=== PATIENT | female | born 1945 | race Caucasian/White ===

== ENCOUNTER → 2016-11-22 | Outpatient (CLI) | payer OTHER ==
[2016-11-22 17:16] LABS: BUN/CREATININE RATIO 24.54 (6-20); CALCIUM 10.7 mg/dL (8.7-10.7); SERUM ALBUMIN 3.9 g/dL (3.5-4.8)
[2016-11-22 17:32] LABS: HEMOGLOBIN A1C > 14.00 % (4.2-6.0)
[2016-11-22 17:44] LABS: HEMOGLOBIN 15.3 g/dL (12.0-16.0); RED BLOOD COUNT 5.16 10^6/uL (4.20-5.40)
[2016-11-22 17:45] LABS: BAND NEUTROPHILS % 0 % (0-10); BASOPHILS % (MANUAL) 1 % (0-1); EOSINOPHILS % (MANUAL) 0 % (0-8); HEMATOCRIT 43.3 % (37.0-47.0); LYMPHOCYTES % (MANUAL) 33 % (10-50); MEAN CORPUSCULAR HEMOGLOBIN 29.7 PG (27-31); MEAN CORPUSCULAR HGB CONC 35.3 g/dL (33-37); MEAN CORPUSCULAR VOLUME 83.9 FL (81-99); MEAN PLATELET VOLUME 10.5 FL (7.4-12.2); MONOCYTES % (MANUAL) 2 % (0-12); NEUTROPHILS % (MANUAL) 64 % (50-80); PLATELET MORPHOLOGY COMMENT NORMAL MORPHOLOGY (NORM); RBC MORPHOLOGY COMMENT NORMAL MORPHOLOGY (NORM); WBC MORPHOLOGY COMMENT NORMAL MORPHOLOGY (NORM)
== END ==
LOC: MOB LAB 16:26
PROVIDERS: ATTEND Family Medicine
DX: E11.9 Type 2 diabetes mellitus without complications (principal); I10 Essential (primary) hypertension; H61.21 Impacted cerumen, right ear; M54.5 Low back pain; M25.561 Pain in right knee; M25.562 Pain in left knee; R35.0 Frequency of micturition
CPT/HCPCS: 36415; 80053; 81002; 83036; 84443; 85007; 99214; G0463

== ENCOUNTER 2017-03-07 16:40 | Inpatient (IN) ==
[2017-03-07] MEDS ORDERED: Sodium Chloride 0.9% 1,000 ML PRIMARY IV ONE (17:25)
[2017-03-07] MEDS ORDERED: ONDANSETRON 4 MG/2 ML VIAL IVP ONE (17:25)
[2017-03-07] MEDS ORDERED: NORMAL SALINE 10 ML SYRINGE FLUSH IVP PRN (17:25)
[2017-03-07] MEDS ORDERED: MORPHINE SULFATE 2 MG/1 ML IVP ONE (17:25)
[2017-03-07 17:39] LABS: BASOPHILS # (AUTO) 0.05 10*3/UL; BASOPHILS % (AUTO) 0.4 % (0-1); EOSINOPHILS # (AUTO) 0.06 10*3/UL; EOSINOPHILS % (AUTO) 0.5 % (0-8); Hematocrit [HCT] 45.9 % (37.0-47.0); Hemoglobin [HGB] 16.5 g/dL (12.0-16.0); LYMPHOCYTES # (AUTO) 2.51 10*3/uL; MEAN CORPUSCULAR HEMOGLOBIN 29.7 PG (27-31); MEAN CORPUSCULAR HGB CONC 35.9 g/dL (33-37); MEAN CORPUSCULAR VOLUME 82.7 FL (81-99); MEAN PLATELET VOLUME 10.8 FL (7.4-12.2); MONOCYTES # (AUTO) 0.73 10*3/UL (0.3-0.8); NEUTROPHILS # (AUTO) 8.81 10*3/UL; NEUTROPHILS % (AUTO) 72.2 % (50-80); PLATELET MORPHOLOGY COMMENT NORMAL MORPHOLOGY (NORM); RBC MORPHOLOGY COMMENT NORMAL MORPHOLOGY (NORM); RED BLOOD COUNT 5.55 10^6/uL (4.20-5.40); WBC MORPHOLOGY COMMENT NORMAL MORPHOLOGY (NORM)
--- NOTE | 2017-03-07 17:42 | EKG ---
[address] [address] Measurements Intervals [place] Rate: 105 P: 74 AR: 177 QRS: 5 QRSD: 136 T: 53 QT: 358 QTc: 419 Interpretive Statements SINUS TACHYCARDIA RIGHT BUNDLE BRANCH BLOCK [120+ ms QRS DURATION, UPRIGHT V1, 40+ ms S IN I/aVL/V4/V5/V6] No previous ECG available for comparison Electronically Signed On 03-09-17 08:41:39 MST by Cm Marin MD [email or web address]
[2017-03-07 18:00] LABS: BLOOD UREA NITROGEN 37 mg/dL (7-22); BUN/CREATININE RATIO 41.11 (6-20); MAGNESIUM 1.9 mg/dL (1.6-2.4); SERUM ALBUMIN 4.1 g/dL (3.5-4.8)
[2017-03-07 18:18] LABS: BILIRUBIN,URINE SMALL (NEG); COLOR,URINE YELLOW (Y); NITRATE,URINE NEGATIVE (NEG); OCCULT BLOOD,URINE SMALL (NEG); PROTEIN,URINE 30 mg/dl (NEG); UROBILINOGEN,URINE 0.2 EU/dL (0.2)
[2017-03-07 18:24] LABS: CLARITY,URINE SLIGHTLY CLOUDY (CLEAR); GLUCOSE, URINE (UA) >=1000 mg/dL (NEG); URINE SAMPLE TYPE CLEAN CATCH URINE
[2017-03-07 18:25] LABS: BACTERIA,URINE RARE; SQUAMOUS EPITHELIAL CELL,UR RARE; YEAST,URINE MANY
[2017-03-07 19:39] LABS: VENOUS PH 7.34 (7.32-7.42)
--- NOTE | 2017-03-07 20:04 | DI ---
PA /LATERAL CHEST X-RAY, 03/07/2017 5:25 PM : Clinical History: Syncope. Previous Exam: None at this facility. There is no acute soft tissue or bony abnormality. Extensive bony proliferative change is present at T11-12 and this is felt to account for the paravertebral densities between T11 and T12. Heart size is normal. Lungs are clear. Mediastinal structures are normal. There are no pulmonary nodules. Reading: Normal chest x-ray.
[2017-03-07] MEDS ORDERED: LIDOCAINE W/ SODIUM BICARB 0.5 ML SYR SUBD PRN (20:36)
[2017-03-07] MEDS ORDERED: Sodium Chloride 0.9% 2,000 ML PRIMARY IV ONE (20:36)
[2017-03-07] MEDS ORDERED: DEXTROSE 31 GM GEL PO PRN (20:36)
[2017-03-07] MEDS ORDERED: CALCIUM CARBONATE 500 MG (TUMS) CHEWABLE TABLET PO PRN (20:36)
[2017-03-07] MEDS ORDERED: Insulin Sliding Scale Protocol SUBCUT PRN (20:36)
[2017-03-07] MEDS ORDERED: DEXTROSE 50%-WATER SYRINGE 50 ML SYRINGE IVP PRN (20:36)
[2017-03-07] MEDS ORDERED: Glucagon Inj Vial 1 MG/ML VIAL IM PRN (20:36)
[2017-03-07] MEDS ORDERED: NICOTINE 21 MG /DAY PATCH TRANSDERM ONE (20:59)
[2017-03-07] MEDS ORDERED: Insulin Glargine SoloStar Inj 100 UNIT/ML INSULN.PEN SUBCUT SCH (21:00)
--- NOTE | 2017-03-07 21:05 | PDOC ---
HPI - History of Present Illness Date and Time of Service: 03/07/20172101 Chief Complaint: Fall and memory problems History of Present Illness: This is a 71-year-old female that lives in the [facility] apartments who presents here today brought in by ambulance after the body care manager found the patient in her apartment not doing very well. The patient reports that she's had some falls, and when I review her record, she has had multiple physician encounters for memory problems dating back to as far as 2011, along with anxiety, depression, diabetes mellitus issues, and tobacco abuse. The patient states that she was up in [place] until about 6 months ago when she moved here to [place]. She's been living independently but honestly does not know if she can live independently. She denies any fever or infectious symptoms and her review of systems was largely negative outside of arthritis and back pain. She states that she stopped taking her medications and ran out of her Cymbalta a couple of weeks ago. She's been very depressed, and has been isolating herself and has not even been smoking socially at her apartment complex. In the emergency room, she was found to have a blood sugar in the 400s , and a chest x-ray was done and it was negative. She had some findings consistent with mild rhabdomyolysis with a slightly elevated CPK in the 170-180 range. There were no exacerbating factors, and the patient was not the best historian, although I did do some cognitive computational evaluation at bedside and she seemed to do fine with that and was oriented to person, place, and situation. She was oriented to time partially. The time course of her recent events is difficult to tell, as she states she stopped her medication 6 months ago, but then also stated that she ran out of her Cymbalta only a couple weeks ago. I may review of her clinic record, she recently saw the family practice residency in [place] and had one visit with Dr. Anderson back in October 2016. I reviewed her pharmacy record and she has not had any refills of medication since November 2016. I do not think she's taking anything. Past Medical History Medical History: 1. Diabetes mellitus type II. 2. Chronic low back pain, etiology could be related to spondylolisthesis or spondyloarthropathy, but no MRI scan has been done to my knowledge. 3. Copious. 4. Depression with anxiety features. 5. Cognitive impairment, possible dementia but not clear. 6. Large abdominal wall hernia. 7. Newly found gait disturbance. 8. Osteoarthritis, status post left knee replacement. Surgical History: 1. Left knee replacement. 2. Abdominal wall hernia repair. 3. Some sort of colectomy and prior history of colostomy with revision. 4. Cleft palate repair. 5. Hysterectomy per patient. 6. Cholecystectomy. 7. Appendectomy per patient. Pertinent Family History: No significant history of heart disease. Past Social History: , smokes, denies alcohol abuse. She has children that she describes as healthy and she states one of her sons lives here in [place] and is her power of trade mark attorney. Tobacco Use: Current Every Day Smoker In the Past 12 Months, Have Used or Abuse Any of the Following Substance: None Alcohol Use: None Medication / Allergies Home Medications: Home Medications Medication Instructions Recorded Confirmed Type NK [NK] 03/07/17 03/07/17 History Allergies/Adverse Reactions: Allergies 3 Allergy/AdvReac Type Severity Reaction Status Date / Time No Known Allergies Allergy Verified 03/07/17 17:04 Review of Systems - Review of Systems All Systems: Reviewed & No Additional Complaints Except as Stated (I did a 12 point review systems, and it was negative except for the history of present illness and that noted below.) - Constitutional Constitutional: REPORTS: General Health Poor, Weakness, Other (Frequent falls) - Cardiovascular Cardiovascular: REPORTS: Negative System Review - Gastrointestinal Gastrointestinal / Abdominal: REPORTS: Negative System Review - Genitourinary Genitourinary: REPORTS: Negative System Review - Musculoskeletal Musculoskeletal: REPORTS: Negative System Review - Neurological Neurologic: REPORTS: Memory Loss, Difficulty Walking, Incoordination - Psychiatric Psychiatric: REPORTS: Depressed Exam - Vitals Vital Signs: Vital Signs (24 hrs) Temp Pulse Resp BP Pulse Ox 03/07/17 16:46 96.5 F L 103 H 16 131/56 95 - General General Appearance: No Acute Distress, Cooperative - Head Head Exam: Normal Inspection, Normocephalic, Atraumatic - Eye Eye Exam: POSITIVE: No Scleral Icterus - ENT ENT Exam: POSITIVE: Mucous Membranes Moist - Neck Neck Exam: Normal Inspection, No Tenderness, No Lymphadenopathy, No Thyromegaly - Respiratory Respiratory Exam: POSITIVE: Clear to Auscultation - Bilaterally, Breathing Non Labored, Normal to Percussion and Palpation - Cardiovascular Cardiovascular Exam: POSITIVE: RRR, No Murmur, No Clicks, No Gallops, No Rubs, No JVD - GI/Abdominal GI/Abdominal Exam: POSITIVE: Normal Bowel Sounds, Non Tender, Non Distended, Soft, Hernia (Lower abdominal wall hernia.) - Rectal Rectal Exam: POSITIVE: Deferred - External Exam: POSITIVE: Deferred Exam: POSITIVE: Deferred - Extremities Extremities Exam: POSITIVE: No Clubbing Present, No Edema Present, No Cyanosis Present - Back Back Exam: POSITIVE: No CVA Tenderness Additional Back Exam Details: May have some abnormalities in kyphosis and lordosis of the thoracic and lumbar spines - Neurological Neurological Exam: POSITIVE: Alert, Oriented x 3, No Facial Droop, Speech Intact / Clear, Moves All Extremities Equally - Psychiatric Psychiatric Exam: POSITIVE: Anxious, Depressed - Integumentary Integumentary Exam: POSITIVE: Normal Color, Warm, Dry, Intact Additional Integumentary Exam Details: Her feet are very dirty, covered in dirt, but I don't notice any sores or lesions. - Central Line Examination Central Line Present on Admission: No Results - Labs CBC and BMP: 03/07/17 16:25 03/07/17 16:25 Additional Lab Results: Laboratory Results 03/07/17 03/07/17 03/07/17 Range/Units 16:25 16:25 16:25 WBC 12.20 H (4.8-10.8) 10^3/uL RBC 5.55 H (4.20-5.40) 10^6/uL Hgb 16.5 H (12.0-16.0) g/dL Hct 45.9 (37.0-47.0) % MCV 82.7 (81-99) FL MCH 29.7 (27-31) PG MCHC 35.9 (33-37) g/dL RDW Std Deviation 38.6 L (39-50) fL RDW Coeff of [place] 12.8 (11.5-14.5) % Plt Count 348 (140-350) 10*3/uL MPV 10.8 (7.4-12.2) FL Immature Gran % (Auto) 0.3 (0-5) % Neut % (Auto) 72.2 (50-80) % Lymph % (Auto) 20.6 (10-50) % [place] % (Auto) 6.0 (5-15) % Eos % (Auto) 0.5 (0-8) % Baso % (Auto) 0.4 (0-1) % Immature Gran # (Auto) 0.04 10*3/UL Neut # (Auto) 8.81 10*3/UL Lymph # (Auto) 2.51 10*3/uL [place] # (Auto) 0.73 (0.3-0.8) 10*3/UL Eos # (Auto) 0.06 10*3/UL Baso # (Auto) 0.05 10*3/UL WBC Morphology Comment Normal morphology (NORM) Plt Morphology Comment Normal morphology (NORM) RBC Morph Comment Normal morphology (NORM) VBG pH (7.32-7.42) VBG pCO2 (45-55) mmHg VBG HCO3 (22-26) mmol/L VBG Base Excess (-2-2) MMOL/L Sodium 131 L (135-145) meq/L Potassium 4.9 (3.8-5.2) meq/L Chloride 95 L (98-112) meq/L Carbon Dioxide 19 L (23-33) meq/L Anion Gap 17 (5-20) BUN 37 H (7-22) mg/dL Creatinine 0.9 (0.50-1.20) mg/dL BUN/Creatinine Ratio 41.11 H (6-20) Glucose 455 H* (78-110) mg/dL Calculated Osmolality 300.0 H (267-292) mOsm/kg Lactic Acid 2.1 (0.70-2.10) MMOL/L Calcium 10.6 (8.7-10.7) mg/dL Magnesium 1.9 (1.6-2.4) mg/dL Total Bilirubin 0.8 (0.3-1.2) mg/dL AST 34 (8-39) IU/L ALT 45 (9-52) IU/L Alkaline Phosphatase 137 H (38-126) IU/L Total Creatine Kinase 174 H (30-136) IU/L CK-MB (CK-2) 5.80 H (0.00-5.00) NG/ML Troponin I 0.013 (< 0.040) ng/mL C-Reactive Protein 1.0 H (0.0-0.9) mg/dL Total Protein 8.0 (6.1-8.0) g/dL Albumin 4.1 (3.5-4.8) g/dL Globulin 3.9 (2.50-4.10) g/dL Albumin/Globulin Ratio 1.00 L (1.3-2.0) mg/g Ur Collection Type Urine Color (Y) Urine Clarity (CLEAR) Urine pH (5.0-8.5) Ur Specific [place] (1.005-1.030) Urine Protein (NEG) mg/dl Urine Glucose (UA) (NEG) mg/dL Urine Ketones (NEG) Urine Occult Blood (NEG) Urine Nitrate (NEG) Urine Bilirubin (NEG) Urine Urobilinogen (0.2) EU/dL Ur Leukocyte Esterase (NEG) Urine RBC (NONE) /hpf Urine WBC (NONE) Ur Squamous Epith Cells (NONE) Ur Renal Epithelial Cell (NONE) Urine Crystals Urine Bacteria (NONE) Urine Casts (NONE) Urine Mucus (NONE) Urine Trichomonas (NONE) Urine Yeast (NONE) Ur Culture Indicated? 03/07/17 03/07/17 Range/Units 17:25 18:24 WBC (4.8-10.8) 10^3/uL RBC (4.20-5.40) 10^6/uL Hgb (12.0-16.0) g/dL Hct (37.0-47.0) % MCV (81-99) FL MCH (27-31) PG MCHC (33-37) g/dL RDW Std Deviation (39-50) fL RDW Coeff of [place] (11.5-14.5) % Plt Count (140-350) 10*3/uL MPV (7.4-12.2) FL Immature Gran % (Auto) (0-5) % Neut % (Auto) (50-80) % Lymph % (Auto) (10-50) % [place] % (Auto) (5-15) % Eos % (Auto) (0-8) % Baso % (Auto) (0-1) % Immature Gran # (Auto) 10*3/UL Neut # (Auto) 10*3/UL Lymph # (Auto) 10*3/uL [place] # (Auto) (0.3-0.8) 10*3/UL Eos # (Auto) 10*3/UL Baso # (Auto) 10*3/UL WBC Morphology Comment (NORM) Plt Morphology Comment (NORM) RBC Morph Comment (NORM) VBG pH 7.34 (7.32-7.42) VBG pCO2 33 L (45-55) mmHg VBG HCO3 18 L (22-26) mmol/L VBG Base Excess -8 L (-2-2) MMOL/L Sodium (135-145) meq/L Potassium (3.8-5.2) meq/L Chloride (98-112) meq/L Carbon Dioxide (23-33) meq/L Anion Gap (5-20) BUN (7-22) mg/dL Creatinine (0.50-1.20) mg/dL BUN/Creatinine Ratio (6-20) Glucose (78-110) mg/dL Calculated Osmolality (267-292) mOsm/kg Lactic Acid (0.70-2.10) MMOL/L Calcium (8.7-10.7) mg/dL Magnesium (1.6-2.4) mg/dL Total Bilirubin (0.3-1.2) mg/dL AST (8-39) IU/L ALT (9-52) IU/L Alkaline Phosphatase (38-126) IU/L Total Creatine Kinase (30-136) IU/L CK-MB (CK-2) (0.00-5.00) NG/ML Troponin I (< 0.040) ng/mL C-Reactive Protein (0.0-0.9) mg/dL Total Protein (6.1-8.0) g/dL Albumin (3.5-4.8) g/dL Globulin (2.50-4.10) g/dL Albumin/Globulin Ratio (1.3-2.0) mg/g Ur Collection Type Clean catch urine Urine Color Yellow (Y) Urine Clarity Slightly cloudy A (CLEAR) Urine pH 5.0 (5.0-8.5) Ur Specific [place] 1.010 (1.005-1.030) Urine Protein 30 A (NEG) mg/dl Urine Glucose (UA) >=1000 (NEG) mg/dL Urine Ketones 40 (NEG) Urine Occult Blood Small H (NEG) Urine Nitrate Negative (NEG) Urine Bilirubin Small (NEG) Urine Urobilinogen 0.2 (0.2) EU/dL Ur Leukocyte Esterase Negative (NEG) Urine RBC 2-4 (NONE) /hpf Urine WBC 1-3 (NONE) Ur Squamous Epith Cells Rare (NONE) Ur Renal Epithelial Cell None (NONE) Urine Crystals None Urine Bacteria Rare (NONE) Urine Casts None (NONE) Urine Mucus None (NONE) Urine Trichomonas None (NONE) Urine Yeast Many H (NONE) Ur Culture Indicated? Culture not set - EKG Data -: EKG Interpreted by Me Rate: Tachycardia EKG Shows Normal: Sinus Rhythm - EKG Data EKG Interpretation: Other (Right bundle branch block pattern present. QRS it up or limits of normal) - Imaging Status: Image Pending (I am ordering a head CT scan with gait abnormality, some confusion, and complaints of memory issues, as well as fall), Image Reviewed by Me (I reviewed the chest x-ray, it appears negative on my view.) Assessment and Plan - Patient Problems (1) Confusion Current Visit: Yes Status: Acute Code(s): R41.0 - Disorientation, unspecified (2) Diabetes mellitus type II, uncontrolled Current Visit: Yes Status: Acute Code(s): E11.65 - Type 2 diabetes mellitus with hyperglycemia Qualifiers: Diabetes mellitus complication status: without complication Diabetes mellitus intermediate card tender insulin use: without intermediate card tender use Qualified Code(s): E11.65 - Type 2 diabetes mellitus with hyperglycemia (3) Hypertension Current Visit: Yes Status: Acute Code(s): I10 - Essential (primary) hypertension Qualifiers: Hypertension type: essential hypertension Qualified Code(s): I10 - Essential (primary) hypertension (4) Chronic low back pain Current Visit: Yes Status: Acute Comment: Denies shooting pains into her legs Code(s): M54.5 - Low back pain; G89.29 - Other chronic pain Qualifiers: Back pain laterality: bilateral Sciatica presence: without sciatica Qualified Code(s): M54.5 - Low back pain; G89.29 - Other chronic pain; G89.29 - Other chronic pain (5) Falls Current Visit: Yes Status: Acute Code(s): W19.XXXA - Unspecified fall, initial encounter Qualifiers: Encounter type: initial encounter Qualified Code(s): W19.XXXA - Unspecified fall, initial encounter (6) Cognitive impairment Current Visit: Yes Status: Acute Code(s): R41.89 - Other symptoms and signs involving cognitive functions and awareness (7) Osteoarthritis Current Visit: Yes Status: Acute Code(s): M19.90 - Unspecified osteoarthritis, unspecified site Qualifiers: Osteoarthritis location: multiple joints Osteoarthritis type: primary Qualified Code(s): M15.0 - Primary generalized (osteo)arthritis (8) Medical non-compliance Current Visit: Yes Status: Acute Code(s): Z91.19 - Patient's noncompliance with other medical treatment and regimen (9) Depression Current Visit: Yes Status: Acute Code(s): F32.9 - Major depressive disorder , single episode, unspecified Qualifiers: Depression Type: other depression Qualified Code(s): F32.89 - Other specified depressive episodes - Assessment / Plan Additional Assessment/Plan Details: Admit the patient. Get a CT scan of the head given the history with falls, memory complaints, and gait disturbances. Start insulin to bring the blood sugars down, bolus IV fluids. Nicotine patch. Patient is very depressed, I think she would benefit from an antidepressant. I will check labs tomorrow. Get MRI scan of the brain tomorrow. I think some of the memory problems and gait disturbances could be vascular infarct dementia related? It's worth checking to make sure. I discussed with the patient CODE STATUS, she states DO NOT RESUSCITATE. I think she is lucid enough to make that decision. PT and OT. Try to contact family to figure out what's going on socially. I'm not sure that this patient really should be living on her own. She may need assisted living.
[2017-03-07] MEDS ORDERED: Influenza 17-18 Vaccine (6mo+) Quad 60mcg/0.5ml PF IM ONE (21:14)
[2017-03-07] MEDS ORDERED: CITALOPRAM 20 MG TABLET PO ONE (21:28)
[2017-03-07] MEDS ORDERED: LABETALOL 20 MG/4 ML (5 MG/1 ML) SYRINGE IVP PRN (21:29)
[2017-03-07] MEDS: Sodium Chloride 0.9% 1,000 ML PRIMARY IV SCH (21:30)
[2017-03-07] MEDS: ONDANSETRON 4 MG/2 ML VIAL IVP PRN (21:40)
[2017-03-07] MEDS: IBUPROFEN 800 MG TABLET PO PRN (21:42)
[2017-03-07] MEDS: HEPARIN 5000 UNIT/1 ML SUBCUT SCH (21:43)
[2017-03-07] MEDS: Insulin Lispro Flexpen 300 UNIT/3 ML INSULN.PEN SUBCUT SCH (21:50)
--- NOTE | 2017-03-07 22:13 | DI ---
EXAM: CT Head Without Intravenous Contrast CLINICAL HISTORY: Fall. Balance problems. TECHNIQUE: Axial computed tomography images of the head/brain without intravenous contrast. COMPARISON: None FINDINGS: Brain: Age indeterminate infarct in the left campbell-cerebellum Nonspecific white matter low attenuation, possible small vessel disease with age indeterminate ischemic changes not excluded.. Small lacunar infarcts. Involutional changes. No midline shift. No acute intracranial hemorrhage. Ventricles: Unremarkable. Bones/joints: Chronic-appearing soft tissue density/osseous fragment in the anterior left maxilla, possibly posttraumatic Soft tissues: See above. Sinuses: Unremarkable as visualized. Mastoid air cells: Unremarkable as visualized. 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 Nonspecific white matter low attenuation. Compare with priors if available, consider MRI if there is concern for acute ischemia. [employer] 03/07/17 22:20 Verify Receipt Verified receipt with BRIDGET Boyer on [address]
--- NOTE | 2017-03-07 23:44 | PDOC ---
General Adult HPI - General Chief Complaint: General Medical Stated Complaint: VAGUE C/O ILLNESS Date Seen by Provider: 03/07/17 Time Seen by Provider: 16:50 Source: POSITIVE: Patient Exam Limitations: POSITIVE: No limitations Nurse's Notes Reviewed & Considered: Yes EMS Report Reviewed & Considered: Unavailable - History of Present Illness Initial Comment: The patient is a 72-year-old female who is brought to the emergency room by ambulance from her residence at the [facility]. Ambulance was apparently called by one of the caretakers at the [place]. The hatchery employee had not seen the patient come out of her apartment all day, which was unusual for her. She went to check on the patient and found the patient very "weak". The patient told the hatchery employee that she had "passed out" twice today. The hatchery employee then called the ambulance, which brought the patient to the emergency room. The paramedics left the emergency room before physician together any collateral information, and no ambulance report is presently available. Patient states that she has felt "bad" for several days. She states she thinks that "my blood sugar is too high ". She has been taking her blood glucose levels at home but does not know what these levels have been. She states she has some "difficulty thinking" and "dizziness ". She also complains of nausea. Patient has a history of diabetes mellitus for which she takes metformin and hypertension for which she takes lisinopril. She also takes Cymbalta. She denies any known fevers or chills. She states that she does not believe she has injured herself during today's falls. No head, chest, or abdominal pain. No vomiting or diarrhea. Have you received a tetanus shot in the past 10 years?: Unknown Body Location Affected: REPORTS: Other (As above) Timing: REPORTS: Gradual Duration: >24 hours Severity: Moderate Quality: REPORTS: Other (Patient denies any pain anywhere) Context: REPORTS: Fall (2), Other (Elevated glucose) Modifying Factors: worse with: Nothing, Analgesics, Antacids, Breathing, Coughing, Defecating, Vomiting, Eating, Exercise, Lying down, Urinating, Palpation, Movement, Rest, Upright Position, Walking, Remaining Still, Other Associated Symptoms: As above Similar Symptoms Previously: No Recent Care Received: REPORTS: Denies Any Prior Injuries Related to Current Complaint?: No - Patient Home Medications Home Medications: Home Medications NK [NK] 03/07/17 - Patient Allergies Allergies/Adverse Reactions: Allergies 3 Allergy/AdvReac Type Severity Reaction Status Date / Time No Known Allergies Allergy Verified 03/07/17 17:04 Past Medical History - heen HEENT History: Denies History Cardiovascular History: Hypertension Respiratory History: Denies History Gastrointestinal History: Denies History Genitourinary History: Denies History Endocrine History: Type 2 Diabetes (oral) Musculoskeletal History: Back Pain Prosthesis or Implant: No Neurological History: Denies History Blood Disorders: Denies History Psychiatric History: Depression Female Reproductive History: Denies History Cancer History: Denies History In Past Year Been Physically Harmed or Verbally Threatened: No History of MDRO: No Tobacco Use: Current Every Day Smoker In the Past 12 Months, Have Used or Abuse Any Substance: None Previous Surgical History: Yes Past Medical History Reviewed: Reviewed - No Changes ROS - Limitations ROS Limitations: Clinical Condition (Patient initially somewhat somnolent and slow to answer questions, although she did answer questions appropriately and was oriented to time, place, and situation.) Constitution: REPORTS: Weakness Cardiovascular: REPORTS: Denies Cardiac Symptoms Respiratory: REPORTS: Denies Resp Symptoms Neurological: REPORTS: Dizziness, Difficulty Walking (Unsteady) Gastrointestinal: REPORTS: Nausea Endocrine: REPORTS: Fatigue, Elevated Glucose Musculoskeletal: REPORTS: Denies MS Symptoms Genitourinary: REPORTS: Denies Symptoms Eyes: REPORTS: Denies Symptoms ENT: REPORTS: Denies Symptoms Skin: REPORTS: Denies Skin Symptoms Lympathic: REPORTS: Denies Lympathic Symptoms Immunologic: POSITIVE: Denies Symptoms Psychiatric: POSITIVE: Denies Psych Symptoms General Adult Exam - General Appearance General Appearance: POSITIVE: Alert, Cooperative, No Acute Distress, No Evidence of Trauma - HEENT HEENT: POSITIVE: Head Inspection Nml, Eyes Inspection Nml, Ears Inspection Nml, Nose Inspection Nml, Oral/Dental Inspect. Nml, Pharynx Inspect. Nml, PERRL, EOMI , Other (Lips appear somewhat dry) - Pupils Pupil Size: 3 mm: Bilateral (PERRLA) - Neck Neck: POSITIVE: Normal Inspection, Thyroid Normal - Respiratory Respiratory: POSITIVE: No Respiratory Distress, Breath Sounds Normal, Chest Non- Tender - Cardiovascular Cardiovascular: POSITIVE: Regular Rate & Rhythm, No Murmur, No Gallop, PMI Normal Peripheral Pulses: Radial (R): 2+, Radial (L): 2+ - Abdomen Abdomen: Soft: (All Quadrants), Normal Bowel Sounds: (All Quadrants), Denies Tenderness: (All Quadrants), No Splenomegaly: (All Quadrants), No Hepatomegaly: (All Quadrants), No Guarding: (All Quadrants), No Rebound: (All Quadrants), No Palpable Pulse: (All Quadrants), No Palpabale Mass: (All Quadrants), No Distention: (All Quadrants), No Rigidity: (All Quadrants) - Back Back: POSITIVE: Normal Inspection - Skin Skin: POSITIVE: Normal Color, Warm, Dry, No Rash - Extremities Extremity: Non-Tender: (All Extremities), Normal ROM: (All Extremities), Normal Inspection: (All Extremities) - Neurological / Psychological Neurological: POSITIVE: Affect Apporpriate, Oriented X3, brand ambassador Normal As Tested, Motor Normal, Sensation Normal General Adult Progress - Results Reviewed by me Xrays/CTs/US Reviewed by me: Yes Discussed with Radiologist: No Radiology Findings: Chest x-ray normal by my interpretation; radiologist interpretation pending. Lab Results Reviewed by Me: Yes (catheter UA shows glucose area; troponin 0.013 ; creatine kinase somewhat el) CBC and BMP: 03/07/17 16:25 03/07/17 16:25 EKG Interpreted/Reviewed By Me:: Yes (right bundle-branch block; sinus tachycardia) EKG Interpretation:: POSITIVE: Abnormal EKG. NEGATIVE: Normal Sinus Rhythm ( Sinus tachycardia of 105), Normal Rate (Sinus tachycardia 105), Normal Intervals (Right bundle-branch block), Normal Sargents (Right bundle-branch block), Normal QRS (Right bundle-branch block), Normal ST/T (Right bundle-branch block) - Patient's Progress Pain Medication Addressed: POSITIVE: Not Applicable School/Work Release Addressed: POSITIVE: Not Applicable Re-Examine Time: 18:20 Re-Examine Comment: Patient hydrated and states she feels some better. She is alert and oriented and mentation seems improved. Hungry and asking for something to eat. Re-Examine Time:: 19:00 Re-Examine Comment: Case discussed with hospitalist; patient admitted for further evaluation and treatment. Status: POSITIVE: Improved, Re-Examined Antibiotics Given: No CVA/Syncope: POSITIVE: EKG - Consult Consult (If Yes, Name of Consulting MD & Time Called): Yes (Dr. Palacios, hospitalist, [id number]) Consulting MD will see pt:: POSITIVE: [facility] Admit Counseled: POSITIVE: Patient, RE: Lab Results, RE: Radiology Results, RE: DX, RE : Need for F/U Patient Care Time - Estimated PCT Patient Care Time (In Minutes): 60 Vital Signs - Recent Vital Signs Vital Signs: Vital Signs (Last 8 hours) Temp Pulse Pulse Resp BP BP Pulse Ox 03/07/17 20:20 96.9 F 100 18 130/56 95 03/07/17 16:46 96.5 F L 103 H 16 131/56 95 - VS Reviewed Vital Signs Reviewed: Yes Discharge Clinical Impression: Dehydration Diabetes mellitus type II, uncontrolled Qualifiers: Diabetes mellitus complication status: without complication Diabetes mellitus termite exterminator helper insulin use: without [place] [facility] use Qualified Code(s): E11.65 - Type 2 diabetes mellitus with hyperglycemia Chronic low back pain Qualifiers: Back pain laterality: bilateral Sciatica presence: without sciatica Qualified Code(s): M54.5 - Low back pain Falls Qualifiers: Encounter type: initial encounter Qualified Code(s): W19.XXXA - Unspecified fall, initial encounter Discharge Disposition: Admit to Inpatient Condition: Stable Date Decision to Admit to Inpatient: 03/07/17 Time Decision to Admit to Inpatient: 18:40
[2017-03-08] MEDS: Sodium Chloride 0.9% 1,000 ML PRIMARY IV SCH ×2 (04:35→14:46)
[2017-03-08] MEDS: HEPARIN 5000 UNIT/1 ML SUBCUT SCH ×3 (05:25→20:11)
[2017-03-08] MEDS: ONDANSETRON 4 MG/2 ML VIAL IVP PRN ×3 (05:26→15:40)
[2017-03-08 06:03] LABS: BASOPHILS # (AUTO) 0.02 10*3/UL; BASOPHILS % (AUTO) 0.3 % (0-1); EOSINOPHILS # (AUTO) 0.11 10*3/UL; EOSINOPHILS % (AUTO) 1.4 % (0-8); Hemoglobin [HGB] 12.7 g/dL (12.0-16.0); LYMPHOCYTES # (AUTO) 1.95 10*3/uL; MEAN CORPUSCULAR HEMOGLOBIN 28.7 PG (27-31); MEAN CORPUSCULAR HGB CONC 34.3 g/dL (33-37); MEAN CORPUSCULAR VOLUME 83.5 FL (81-99); MEAN PLATELET VOLUME 10.2 FL (7.4-12.2); MONOCYTES # (AUTO) 0.63 10*3/UL (0.3-0.8); NEUTROPHILS # (AUTO) 5.11 10*3/UL; NEUTROPHILS % (AUTO) 65.3 % (50-80); RED BLOOD COUNT 4.43 10^6/uL (4.20-5.40)
[2017-03-08 06:24] LABS: AMMONIA 9 UMOL/L (9.0-33.0); BLOOD UREA NITROGEN 33 mg/dL (7-22); BUN/CREATININE RATIO 41.25 (6-20); SERUM ALBUMIN 2.7 g/dL (3.5-4.8)
[2017-03-08 06:25] LABS: PLATELET MORPHOLOGY COMMENT NORMAL MORPHOLOGY (NORM); RBC MORPHOLOGY COMMENT NORMAL MORPHOLOGY (NORM); WBC MORPHOLOGY COMMENT NORMAL MORPHOLOGY (NORM)
[2017-03-08 06:48] LABS: HIV ANTIBODY NEGATIVE (N); HIV-1 P24 ANTIGEN NEGATIVE (N)
[2017-03-08] MEDS: ACETAMINOPHEN 325 MG TABLET PO PRN ×2 (07:21→15:40)
[2017-03-08] MEDS: Insulin Lispro Flexpen 300 UNIT/3 ML INSULN.PEN SUBCUT SCH ×4 (07:23→20:10)
[2017-03-08] MEDS ORDERED: DULOXETINE 30 MG CAPSULE PO SCH (09:00)
[2017-03-08] MEDS ORDERED: DIAZEPAM 10 MG/2 ML (5 MG/1 ML) CARPUJECT IVP ONE (09:07)
[2017-03-08] MEDS: CITALOPRAM 20 MG TABLET PO SCH (09:12)
[2017-03-08] MEDS: NICOTINE 21 MG /DAY PATCH TRANSDERM SCH (09:12)
[2017-03-08] MEDS: IBUPROFEN 800 MG TABLET PO PRN ×2 (09:37→20:09)
[2017-03-08] MEDS ORDERED: Influenza 17-18 Vaccine (6mo+) Quad 60mcg/0.5ml PF IM ONE (11:24)
[2017-03-08] MEDS ORDERED: Insulin Glargine SoloStar Inj 100 UNIT/ML INSULN.PEN SUBCUT SCH (12:45)
--- NOTE | 2017-03-08 12:48 | PDOC(PROG) ---
Date and Time of Service: 03/08/2017, 1245 Interval History: No chest pain and no trouble breathing. Complains of back pain. Has significant gait disturbance, leans towards the left. Head CT scan showed evidence of a probable cerebellar stroke, and MRI of brain is pending today. She complains of nausea. Objective : Data - Labs CBC and BMP: 03/08/17 05:48 03/08/17 05:48 Objective : Exam - General General Appearance: No Acute Distress, Cooperative Additional General Exam Details: Vital Signs (24 hrs) Temp Pulse Pulse Resp BP BP Pulse Ox 03/08/17 11:27 97.1 F 84 16 145/63 95 03/08/17 11:00 93 03/08/17 07:27 97.8 F 95 12 142/46 93 03/08/17 07:00 90 03/08/17 04:31 97.3 F 98 20 163/47 94 03/08/17 04:21 94 03/08/17 03:00 88 03/07/17 21:00 97.4 F 104 H 22 173/75 95 03/07/17 20:20 96.9 F 100 18 130/56 95 03/07/17 16:46 96.5 F L 103 H 16 131/56 95 - Head Head Exam: Normal Inspection - Eye Eye Exam: No Scleral Icterus - ENT ENT Exam: Mucous Membranes Moist - Respiratory Respiratory Exam: Clear to Auscultation - Bilaterally, Breathing Non Labored - Cardiovascular Cardiovascular Exam: RRR, No Murmur, No Clicks, No Gallops, No Rubs, No JVD - GI/Abdominal GI/Abdominal Exam: Normal Bowel Sounds, Non Tender, Non Distended, Soft - Extremities Extremities Exam: No Clubbing Present, No Edema Present, No Cyanosis Present - Neurological Neurological Exam: Alert, Oriented x 3, No Facial Droop, Speech Intact / Clear, Moves All Extremities Equally, Abnormal Gait Additional Neurological Exam Details: Score 23/30 on her cognitive evaluation. - Psychiatric Psychiatric Exam: Anxious, Depressed Assessment and Plan - Patient Problems (1) Cerebellar stroke Current Visit: Yes Status: Acute Code(s): I63.9 - Cerebral infarction, unspecified (2) Confusion Current Visit: Yes Status: Acute Code(s): R41.0 - Disorientation, unspecified (3) Diabetes mellitus type II, uncontrolled Current Visit: Yes Status: Acute Code(s): E11.65 - Type 2 diabetes mellitus with hyperglycemia Qualifiers: Diabetes mellitus complication status: without complication Diabetes mellitus group home insulin use: without terminal operator use Qualified Code(s): E11.65 - Type 2 diabetes mellitus with hyperglycemia (4) Hypertension Current Visit: Yes Status: Acute Code(s): I10 - Essential (primary) hypertension Qualifiers: Hypertension type: essential hypertension Qualified Code(s): I10 - Essential (primary) hypertension (5) Chronic low back pain Current Visit: Yes Status: Acute Code(s): M54.5 - Low back pain; G89.29 - Other chronic pain Qualifiers: Back pain laterality: bilateral Sciatica presence: without sciatica Qualified Code(s): M54.5 - Low back pain; G89.29 - Other chronic pain; G89.29 - Other chronic pain (6) Falls Current Visit: Yes Status: Acute Code(s): W19.XXXA - Unspecified fall, initial encounter Qualifiers: Encounter type: initial encounter Qualified Code(s): W19.XXXA - Unspecified fall, initial encounter (7) Cognitive impairment Current Visit: Yes Status: Acute Code(s): R41.89 - Other symptoms and signs involving cognitive functions and awareness (8) Osteoarthritis Current Visit: Yes Status: Acute Code(s): M19.90 - Unspecified osteoarthritis, unspecified site Qualifiers: Osteoarthritis location: multiple joints Osteoarthritis type: primary Qualified Code(s): M15.0 - Primary generalized (osteo)arthritis (9) Medical non-compliance Current Visit: Yes Status: Acute Code(s): Z91.19 - Patient's noncompliance with other medical treatment and regimen (10) Depression Current Visit: Yes Status: Acute Code(s): F32.9 - Major depressive disorder , single episode, unspecified Qualifiers: Depression Type: other depression Qualified Code(s): F32.89 - Other specified depressive episodes - Assessment / Plan Additional Assessment/Plan Details: Patient probably had a subacute cerebellar stroke sometime within the last week or so. She has significant balance problems. I spoke with radiology regarding the patient's MRI scan and it does. Consistent with this. We'll check a CTA of her head and neck with and without contrast to evaluate further as I do not think she will remain stable positionally for repeat MRI scan with MRA of the head and neck. PT and OT. Aspirin. Resume blood pressure medications. Would probably benefit from rehabilitation, senior care facility, and closer medical management of her medical issues. I spoke with her son about this yesterday, and he agreed. We will get case management involved. We'll try to update son on the fact that we did confirm she had a stroke. She is far outside the TPA window.
[2017-03-08] MEDS: Prochlorperazine Edisylate Inj 10mg/2ml vial IVP PRN ×2 (13:27→17:54)
--- NOTE | 2017-03-08 13:34 | DI ---
MRI BRAIN SCAN WITHOUT IV CONTRAST, 03/08/2017 7:00 AM: Clinical History: Balance problems. Fall. Previous Exam: None at this facility. Sequences: Sagittal T1; Axial ELISEO T2 and FLAIR. Axial diffusion weighted images with ADC mapping were also performed. The 4th, 3rd, and lateral ventricles are of normal size, shape, position, and contour for this patien t's age. There are hyperintensities in the inferior half of the left cerebellar hemisphere with subtl e mass effect. This same area shows hyperintensity on the diffusion sequence and low signal intensity on the ADC map consistent with an ischemic infarct corresponding to occlusion of the left posterior inferior cerebellar artery distribution. There is actually some increased signal intensity on the non contrast T1-weighted scans corresponding to the infarct suggesting partial hemorrhagic transformation . This would imply this is a subacute infarct. There is no involvement of the brainstem. There is an old infarct in the body of the right caudate nucleus and this actually communicates with the body of the right lateral ventricle. A second small 6 mm old infarct is present in the right basal ganglia. T here are multiple punctate periventricular white matter hyperintensities bilaterally that extend into the watershed territory, consistent with mild small vessel ischemic disease. This amount of ischemic disease is appropriate for the patient's age. There is moderately severe cerebral atrophy and mild c erebellar atrophy. This patient has a type I Arnold-Chiari malformation with the right cerebellar hem isphere descending 3 mm below the foramen magnum. The left cerebellar tonsil also distends below the foramen magnum but it is enlarged secondary to the subacute infarct. There are no extracerebral mante ls or shift of the midline structures. The paranasal sinuses are normal. Readin. Findings consistent with a subacute ischemic infarct corresponding to the distribution of the lef t PICA, but with the hyperintensities in the infarct area on the noncontrast T1-weighted sequence, th is infarct is probably subacute. Mild mass effect is present but most pronounced in the left cerebell ar tonsil. This patient has an Arnold-Chiari type I malformation. 2. There are old lacunar infarcts in the body of the right caudate nucleus and the right basal gangl ia. There is also mild small vessel ischemic disease. 3. Moderately severe cerebral atrophy with mild cerebellar atrophy.
[2017-03-08] MEDS ORDERED: ASPIRIN 325 MG TABLET PO ONE (14:14)
--- NOTE | 2017-03-08 16:10 | PT.PROG ---
Progress Note Progress Note: Patient was not seen this afternoon due to testing. Patient will continue POC 11 /10 AM.
--- NOTE | 2017-03-08 17:53 | DI ---
CT ANGIOGRAM OF THE NECK, 03/08/2017 1:20 PM : Clinical History: Left hemispheric cerebellar stroke. Previous Exam: None at this facility. Scans are performed from the sternal notch to of the neck to the base of the skull following IV admin istration of 65 mL of Isovue 300. Proprietary automated bolus tracking software was used to verify th e timing of the injection. 3D MIPS and multiplanar reconstructions are generated from the acquired da ta using the [employer] off line processing program. The base of the neck and thoracic inlet are normal. There are no abnormal cervical lymph nodes. The r ight common carotid artery has a 50% long segment diameter stenosis arising about 2 cm distal from th e origin and extending for approximately 1.5 cm after which the caliber of symptoms a normal diameter . There is a heavy calcification in the right posterior carotid bulb with an estimated 50% diameter s tenosis of the proximal right internal carotid artery. The remainder of the right internal carotid ar arya up to the anterior clinoid process is normal. The left carotid carotid artery is normal from its origin to the bifurcation. There is no significant stenosis in the left carotid bulb or in the left internal carotid artery to the anterior clinoid process. There is a 50% diameter stenosis at the orig in of the right vertebral artery which is the dominant vessel. The remainder of the right vertebral a rtery is normal. The left vertebral artery has a normal origin. Plaque disease is noted from approxim ately the left foramen transversarium at C7 up to C5 without significant stenosis. The left vertebral artery is unremarkable up to the level of C1 at which point there is complete occlusion of this vess el up to the beginning of the basilar artery. The left PICA is not visualized and this would explain the left cerebellar hemispheric infarct. The right PICA is visualized and is grossly normal. READIN. 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 Nonocclusive plaque disease is present in the proximal portion of the left vertebra l artery between C7-C5. The left PICA is not visualized and this accounts for the planned infarct of the inferior aspect of the left cerebellar hemisphere. 2. The right vertebral artery is unremarkable except for a 50% stenosis at the origin. 3. Both common carotid arteries and internal carotid arteries show no hemodynamically significant st enosis. CT ANGIOGRAPHY OF THE [place], 03/08/2017 1:20 PM : Clinical History: See above. Previous Exam: None at this facility. Non contrast head scans are performed to localize the anatomic boundaries of the [place]. IV administration of 95 mL of Isovue 300 is then performed. High resolution axial thin slices through t he [place] are obtained during the arterial phase. 3D MIPS and multiplanar reconstructions a re generated from the acquired data using the [employer] off line processing program. The right vertebral artery is dominant. As previously noted, there is complete occlusion of the left vertebral artery between C1 and the origin of the basilar artery. The left PICA is occluded. There is no basilar tip aneurysm or aneurysm arising from the vertebral-basilar branches. There is no posteri or communicating artery. No anterior communicating artery is identified. The A1 and A2, and the M1 th rough M3 branches bilaterally are normal. READIN. 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 The left PICA is occluded. 2. The remainder of the [place] is normal. There is no posterior communicating artery or vi sualized anterior communicating artery. 3. The pre-and postcontrast scans of the brain show the previously noted left cerebellar hemispheric bland infarct as well as lacunar infarcts of the right basal ganglia and the body of the right cauda te nucleus.
[2017-03-09] MEDS: ACETAMINOPHEN 325 MG TABLET PO PRN ×3 (00:31→21:36)
[2017-03-09] MEDS: ONDANSETRON 4 MG/2 ML VIAL IVP PRN ×3 (00:31→21:52)
[2017-03-09] MEDS: Sodium Chloride 0.9% 1,000 ML PRIMARY IV SCH ×3 (00:35→19:02)
[2017-03-09] MEDS: HEPARIN 5000 UNIT/1 ML SUBCUT SCH ×3 (04:05→20:58)
[2017-03-09] MEDS: Insulin Lispro Flexpen 300 UNIT/3 ML INSULN.PEN SUBCUT SCH ×4 (07:00→20:38)
[2017-03-09 07:16] LABS: BLOOD UREA NITROGEN 26 mg/dL (7-22); BUN/CREATININE RATIO 37.14 (6-20)
--- NOTE | 2017-03-09 08:32 | DI ---
LUMBAR SPINE SERIES, 03/08/2017 7:00 AM: Clinical History: Chronic low back pain. Previous Exam: 10/17/2011. 5 routine views are submitted. The lumbar vertebral bodies are of normal height and size. There is an old compression fracture of T12 with complete obliteration of the T12-L1 disc space and this is unch anged from the prior study of 10/17/2011. The L1-2 and L2-3 disc spaces are normal. L3-4 through L5-S1 disc spaces show severe narrowing. There is a grade 1 spondylolisthesis at L5-S1. Marked sclerosis h as developed at the level of the disc spaces at L3-4 and L4-5 with severe degenerative arthritic olivo ges in all of the apophyseal joints but most pronounced between L3-4 and L5-S1. There is severe degen erative arthritic change of the right sacroiliac joint with mild arthritic change on the left side. Readin. There is severe disc space narrowing at L3-4 through L5-S1 with marked sclerosis of the endplates at L3-4 and L4-5. There is a grade 1 spondylolisthesis at L5-S1. 2. Severe arthritic changes are present in all of the apophyseal joints bilaterally but most pronoun eileen between L3-4 and L5-S1. 3. Old compression fracture of T12.
[2017-03-09] MEDS: NICOTINE 21 MG /DAY PATCH TRANSDERM SCH (08:34)
[2017-03-09] MEDS: ASPIRIN 325 MG TABLET PO SCH (08:36)
[2017-03-09] MEDS: IBUPROFEN 800 MG TABLET PO PRN ×2 (08:36→17:01)
[2017-03-09] MEDS: CITALOPRAM 20 MG TABLET PO SCH (08:37)
--- NOTE | 2017-03-09 11:47 | PTI REPORT ---
Thank you for the referral of Fabi Lemon. She was seen on 03/08/17 for an inpatient evaluation secondary to weakness and decreased balance. SUBJECTIVE: The patient is a 72-year-old female. The patient reports a pain level of 5/10 on the verbal analog scale (0=no pain, 10=worst pain) in her low back that never resolves. She states at worst it gets to a 7/10. The patient states she lives alone in [address] and has had two falls in the last month. She states she was mostly independent with ADLs prior to hospitalization. She states that she did get her meals delivered by the [facility] which is across the way. The patient lives on the first floor. She does have hand rails and two small steps to enter the building. The patient states she ambulates with a single axis cane very short distances. The patient states she has been very dizzy the last couple of days and feels "weird". PAST MEDICAL HISTORY: Past medical history can be found in the patient's medical record. OBJECTIVE FINDINGS: Range of motion: Range of motion of lower extremities are within functional limits. Strength: Manual muscle testing revealed 4/5 bilateral lower extremity strength throughout. Bed mobility: The patient was able to come from supine to sit with min assist. Transfers: The patient was able to perform sit to stand and stand to sit transfers with mod assist. Ambulation: The patient was able to ambulate 20 feet with single axis cane with mod/max assist. The therapist would recommend front wheeled or four point walker for safety. Balance: The patient had poor sitting static and dynamic balance as well as poor static and dynamic standing balance. Eyes open Romberg was at 8 seconds, eyes closed Romberg was at 4 seconds. ASSESSMENT: The patient has subjective and objective findings consistent with generalized weakness and poor balance related to possible other medical complications. The patient demonstrates poor safety awareness and balance and would do well with assistance at home or in a skilled facility. Short-Term Goals: To be met by discharge from inpatient: Patient will demonstrate poor plus static and dynamic sitting balance. Patient will be able to ambulate 40 feet with least restrictive assistive device and min assist. Patient will be able to transfer from sit to stand to least restrictive assistive device with min assist. Long-Term Goals: To be met following discharge from inpatient: Patient will be able to ambulate household distances with least restrictive assistive device and min assist to supervision. Patient will be able to transfer from sit to stand with stand by assist or supervision. TREATMENT PLAN: Patient will be seen B.I.D during the week and one time per day over the weekend as an inpatient to address the above goals and objectives. INITIAL TREATMENT: Treatment today consisted of the inpatient evaluation followed by range of motion, manually resisted activities, and ambulation x20 feet with least restrictive assistive device. At this time the patient was brought to the physical therapy gym and left with OT in no apparent distress. The patient did state she was dizzy and felt weird. [email or web address]
[2017-03-09] MEDS: DOCUSATE 100 MG CAPSULE PO PRN (12:01)
[2017-03-09] MEDS: Prochlorperazine Edisylate Inj 10mg/2ml vial IVP PRN ×2 (12:01→18:49)
--- NOTE | 2017-03-09 14:28 | OTI REPORT ---
Thank you for the referral of Fabi Lemon. She was seen on 03/08/17 for an occupational therapy inpatient evaluation secondary to weakness and decreased balance. SUBJECTIVE: The patient is a 72-year-old female who is being seen today secondary to being found in her apartment having increased difficulties being able to take care of herself. She did come in with a blood sugar of 400. She did report to occupational therapy that typically she dresses herself. She states she is having increased difficulty at home. She states she has not been taking care of herself well and has difficulty initiating this. She knows that she has depression and this is part of it. Also, the patient states she has not taken her medications for the last two months. PAST MEDICAL HISTORY: Past medical history can be found in the patient's medical record. OBJECTIVE FINDINGS: Range of motion: The patient's range of motion of her upper extremities was within normal limits. Strength: Strength in bilateral upper extremities was 3+/5 for shoulder flexion and 3+/5 for abduction, elbow flexion/extension was 3+/5, and wrist flexion/ extension was 3+/5. Coordination: The patient did seem slightly less coordinated on the left side vs. the right. Vision: The patient reports she typically wears glasses. The patient demonstrated good visual tracking today. Cognition: The patient was assessed with the Elías Cognitive Assessment (MoCA ) and she scored 23/30 which puts her in the MILD cognitive impairment range. Her main difficulties were delayed recall and she had slight visuoperceptual concerns on the executive functions. She had good abstraction, was able to repeat sentences, was alert and oriented 5/6 (she was one day off on the day of the week). Transfers: The patient requires max assist with functional transfers for balance. She has very minimal proprioception on where her body is when transferring. She tends to have a very weak left side and kept falling to the left. Activities of daily living: The patient was able to bend to try to take off her sock; she needed min assist. The patient is able to complete upper extremity dressing with min assist and set up. The patient requires max assist for lower extremity dressing. Balance: The patient requires max assist with standing balance to pull pants from knee to waist level. ASSESSMENT: At this time the patient would benefit from skilled occupational therapy to further her cognitive assessment with the Cognitive Performance Test this afternoon. The therapist did discuss with the patient that she may need 24- hour care at some point in time and she was open to possibly going to the [facility] [place] eventually. Problem List: Decreased upper extremity strength Decreased ability to perform functional transfers Decreased safety awareness Short-Term Goals: To be met by discharge from inpatient: Patient will complete the Cognitive Performance Test and scores will be given. Patient will increase upper extremity strength to 4+/5 throughout. Patient will be able to complete a toilet transfer with contact guard assist. Patient will be able to dress lower extremities with min assist and upper extremities with set up independently. Patient will be able to stand x5 minutes while completing hygiene tasks at sink with contact guard assist for balance. Patient will be able to take a shower with min assist while sitting on bench chair. Long-Term Goals: To be met following discharge from inpatient: Patient would like to return home to her apartment. More than likely, the patient will be discharged to home with 24-hour care or to a 24-hour care facility to assist with her abilities to care for herself safely and independently. TREATMENT PLAN: Patient will be seen B.I.D during the week and one time per day over the weekend as an inpatient to address the above goals and objectives. INITIAL TREATMENT: Treatment today consisted of the initial evaluation followed by functional transfer from wheelchair to bed with max assist. She completed the MoCA test with a score of 23/30 and worked on upper extremity active range of motion exercises. HERLINDA
[2017-03-09 14:36] LABS: HEP B CORE IGM ANTIBODY Negative (Negative); HEPATITIS B SURFACE AG Negative (Negative)
--- NOTE | 2017-03-09 15:54 | PT.PROG ---
Progress Note Progress Note: S. Patient stated that she is tired this morning. O. Patient ambulated 4 feet to the chair and performed seated exercises in the form of; long arc quads, heel toe raises, marches, pillow squeezes all x 10 bilaterally. Patient was left in chair with alarm and call light. A. Patient was able to ambulate with less difficulty today compared to yesterday. Patient struggled with controlling motion on her left side however was able to perform exercises with little difficulty. Patient required mod assist x 2 to ambulate. She would continue to benefit from skilled therapy at this time. P. Continue POC.
--- NOTE | 2017-03-09 16:39 | OT.PROG ---
Progress Note Progress Note: S: pt kept stating that she didn't want to be left alone. She also asked a couple times what she was doing down here, meaning therapy. She was in good mood overall. she agreed to participate in small portion of CPT. she stated she has been doing well with her meds at home and only has 3 of them that she takes once a day. O: pt was seen in her room and brought down by PT/OT. She was transferred entire way in w/c. She was set up on heat while going over directions for CPT. She completed only the med management portion of CPT. She scored 6/6 with self correction on only 1 med. She was turned over to PT at this point. A: pt became anxious at the end as she appeared to be uncomfortable with the amount of people in therapy. She did participate well in small portion of CPT. P: continue per POC.
--- NOTE | 2017-03-09 16:56 | PT.PROG ---
Progress Note Progress Note: S: The pt. continued to complain of feeling 'weird.' However, she feels much better than yesterday. O: Pt. AMB 15ft with SBA where she then entered her wheelchair and was taken to rehab center for therapy. She completed head on her back for 20' mins. Pt. was then taken back to her room where she completed seated LE therapeutic exercises of marches, hip isometrics, LAQs, and ankle pumps. A: Pt. was much more alert today. Her balanced improved immensely since last treatment. X She was no longer leaning to the left and had much more control of her own body weight. She got nervous in the PT clinic and wanted to complete the rest of therapy back in her room. Pt. was able to tolerate exercises well. P: Continue POC. Cory London, SPT Chilo Joyce, PT
[2017-03-09] MEDS ORDERED: Insulin Glargine SoloStar Inj 100 UNIT/ML INSULN.PEN SUBCUT SCH (18:18)
--- NOTE | 2017-03-09 18:26 | PDOC(PROG) ---
Date and Time of Service: 03/09/2017, 181 Interval History: No chest pain, SOB, or vomiting. Has had bad nausea. Still having balance issues. Objective : Data - Labs CBC and BMP: 03/08/17 05:48 03/09/17 05:44 Additional Lab Results: Laboratory Results 03/07/17 03/07/17 03/07/17 Range/Units 16:25 16:25 16:25 WBC 12.20 H (4.8-10.8) 10^3/uL RBC 5.55 H (4.20-5.40) 10^6/uL Hgb 16.5 H (12.0-16.0) g/dL Hct 45.9 (37.0-47.0) % MCV 82.7 (81-99) FL MCH 29.7 (27-31) PG MCHC 35.9 (33-37) g/dL RDW Std Deviation 38.6 L (39-50) fL RDW Coeff of Dameon 12.8 (11.5-14.5) % Plt Count 348 (140-350) 10*3/uL MPV 10.8 (7.4-12.2) FL Immature Gran % (Auto) 0.3 (0-5) % Neut % (Auto) 72.2 (50-80) % Lymph % (Auto) 20.6 (10-50) % [place] % (Auto) 6.0 (5-15) % Eos % (Auto) 0.5 (0-8) % Baso % (Auto) 0.4 (0-1) % Immature Gran # (Auto) 0.04 10*3/UL Neut # (Auto) 8.81 10*3/UL Lymph # (Auto) 2.51 10*3/uL [place] # (Auto) 0.73 (0.3-0.8) 10*3/UL Eos # (Auto) 0.06 10*3/UL Baso # (Auto) 0.05 10*3/UL WBC Morphology Comment Normal morphology (NORM) Plt Morphology Comment Normal morphology (NORM) RBC Morph Comment Normal morphology (NORM) ESR (0-20) MM/HR VBG pH (7.32-7.42) VBG pCO2 (45-55) mmHg VBG HCO3 (22-26) mmol/L VBG Base Excess (-2-2) MMOL/L Sodium 131 L (135-145) meq/L Potassium 4.9 (3.8-5.2) meq/L Chloride 95 L (98-112) meq/L Carbon Dioxide 19 L (23-33) meq/L Anion Gap 17 (5-20) BUN 37 H (7-22) mg/dL Creatinine 0.9 (0.50-1.20) mg/dL BUN/Creatinine Ratio 41.11 H (6-20) Glucose 455 H* (78-110) mg/dL Calculated Osmolality 300.0 H (267-292) mOsm/kg Lactic Acid 2.1 (0.70-2.10) MMOL/L Calcium 10.6 (8.7-10.7) mg/dL Magnesium 1.9 (1.6-2.4) mg/dL Total Bilirubin 0.8 (0.3-1.2) mg/dL AST 34 (8-39) IU/L ALT 45 (9-52) IU/L Alkaline Phosphatase 137 H (38-126) IU/L Ammonia (9.0-33.0) UMOL/L Total Creatine Kinase 174 H (30-136) IU/L CK-MB (CK-2) 5.80 H (0.00-5.00) NG/ML Troponin I 0.013 (< 0.040) ng/mL C-Reactive Protein 1.0 H (0.0-0.9) mg/dL Total Protein 8.0 (6.1-8.0) g/dL Albumin 4.1 (3.5-4.8) g/dL Globulin 3.9 (2.50-4.10) g/dL Albumin/Globulin Ratio 1.00 L (1.3-2.0) mg/g Vitamin B12 (239-931) pg/mL Vitamin D 25-Hydroxy (30-100) NG/ML Serum Folate (2.76-20.0) NG/ML Ur Collection Type Urine Color (Y) Urine Clarity (CLEAR) Urine pH (5.0-8.5) Ur Specific [place] (1.005-1.030) Urine Protein (NEG) mg/dl Urine Glucose (UA) (NEG) mg/dL Urine Ketones (NEG) Urine Occult Blood (NEG) Urine Nitrate (NEG) Urine Bilirubin (NEG) Urine Urobilinogen (0.2) EU/dL Ur Leukocyte Esterase (NEG) Urine RBC (NONE) /hpf Urine WBC (NONE) Ur Squamous Epith Cells (NONE) Ur Renal Epithelial Cell (NONE) Urine Crystals Urine Bacteria (NONE) Urine Casts (NONE) Urine Mucus (NONE) Urine Trichomonas (NONE) Urine Yeast (NONE) Ur Culture Indicated? HIV 1&2 Antibody Rapid (N) HIV P24 Antigen (N) 03/07/17 03/07/17 03/07/17 Range/Units 16:25 16:25 16:25 WBC (4.8-10.8) 10^3/uL RBC (4.20-5.40) 10^6/uL Hgb (12.0-16.0) g/dL Hct (37.0-47.0) % MCV (81-99) FL MCH (27-31) PG MCHC (33-37) g/dL RDW Std Deviation (39-50) fL RDW Coeff of Dameon (11.5-14.5) % Plt Count (140-350) 10*3/uL MPV (7.4-12.2) FL Immature Gran % (Auto) (0-5) % Neut % (Auto) (50-80) % Lymph % (Auto) (10-50) % [place] % (Auto) (5-15) % Eos % (Auto) (0-8) % Baso % (Auto) (0-1) % Immature Gran # (Auto) 10*3/UL Neut # (Auto) 10*3/UL Lymph # (Auto) 10*3/uL [place] # (Auto) (0.3-0.8) 10*3/UL Eos # (Auto) 10*3/UL Baso # (Auto) 10*3/UL WBC Morphology Comment (NORM) Plt Morphology Comment (NORM) RBC Morph Comment (NORM) ESR 13 (0-20) MM/HR VBG pH (7.32-7.42) VBG pCO2 (45-55) mmHg VBG HCO3 (22-26) mmol/L VBG Base Excess (-2-2) MMOL/L Sodium (135-145) meq/L Potassium (3.8-5.2) meq/L Chloride (98-112) meq/L Carbon Dioxide (23-33) meq/L Anion Gap (5-20) BUN (7-22) mg/dL Creatinine (0.50-1.20) mg/dL BUN/Creatinine Ratio (6-20) Glucose (78-110) mg/dL Calculated Osmolality (267-292) mOsm/kg Lactic Acid (0.70-2.10) MMOL/L Calcium (8.7-10.7) mg/dL Magnesium (1.6-2.4) mg/dL Total Bilirubin (0.3-1.2) mg/dL AST (8-39) IU/L ALT (9-52) IU/L Alkaline Phosphatase (38-126) IU/L Ammonia (9.0-33.0) UMOL/L Total Creatine Kinase (30-136) IU/L CK-MB (CK-2) (0.00-5.00) NG/ML Troponin I (< 0.040) ng/mL C-Reactive Protein (0.0-0.9) mg/dL Total Protein (6.1-8.0) g/dL Albumin (3.5-4.8) g/dL Globulin (2.50-4.10) g/dL Albumin/Globulin Ratio (1.3-2.0) mg/g Vitamin B12 927 (239-931) pg/mL Vitamin D 25-Hydroxy 25.5 L (30-100) NG/ML Serum Folate > 20.0 H (2.76-20.0) NG/ML Ur Collection Type Urine Color (Y) Urine Clarity (CLEAR) Urine pH (5.0-8.5) Ur Specific [place] (1.005-1.030) Urine Protein (NEG) mg/dl Urine Glucose (UA) (NEG) mg/dL Urine Ketones (NEG) Urine Occult Blood (NEG) Urine Nitrate (NEG) Urine Bilirubin (NEG) Urine Urobilinogen (0.2) EU/dL Ur Leukocyte Esterase (NEG) Urine RBC (NONE) /hpf Urine WBC (NONE) Ur Squamous Epith Cells (NONE) Ur Renal Epithelial Cell (NONE) Urine Crystals Urine Bacteria (NONE) Urine Casts (NONE) Urine Mucus (NONE) Urine Trichomonas (NONE) Urine Yeast (NONE) Ur Culture Indicated? HIV 1&2 Antibody Rapid (N) HIV P24 Antigen (N) 03/07/17 03/07/17 03/08/17 Range/Units 17:25 18:24 05:48 WBC 7.83 (4.8-10.8) 10^3/uL RBC 4.43 (4.20-5.40) 10^6/uL Hgb 12.7 (12.0-16.0) g/dL Hct 37.0 (37.0-47.0) % MCV 83.5 (81-99) FL MCH 28.7 (27-31) PG MCHC 34.3 (33-37) g/dL RDW Std Deviation 37.8 L (39-50) fL RDW Coeff of Dameon 12.6 (11.5-14.5) % Plt Count 284 (140-350) 10*3/uL MPV 10.2 (7.4-12.2) FL Immature Gran % (Auto) 0.1 (0-5) % Neut % (Auto) 65.3 (50-80) % Lymph % (Auto) 24.9 (10-50) % [place] % (Auto) 8.0 (5-15) % Eos % (Auto) 1.4 (0-8) % Baso % (Auto) 0.3 (0-1) % Immature Gran # (Auto) 0.01 10*3/UL Neut # (Auto) 5.11 10*3/UL Lymph # (Auto) 1.95 10*3/uL [place] # (Auto) 0.63 (0.3-0.8) 10*3/UL Eos # (Auto) 0.11 10*3/UL Baso # (Auto) 0.02 10*3/UL WBC Morphology Comment Normal morphology (NORM) Plt Morphology Comment Normal morphology (NORM) RBC Morph Comment Normal morphology (NORM) ESR (0-20) MM/HR VBG pH 7.34 (7.32-7.42) VBG pCO2 33 L (45-55) mmHg VBG HCO3 18 L (22-26) mmol/L VBG Base Excess -8 L (-2-2) MMOL/L Sodium (135-145) meq/L Potassium (3.8-5.2) meq/L Chloride (98-112) meq/L Carbon Dioxide (23-33) meq/L Anion Gap (5-20) BUN (7-22) mg/dL Creatinine (0.50-1.20) mg/dL BUN/Creatinine Ratio (6-20) Glucose (78-110) mg/dL Calculated Osmolality (267-292) mOsm/kg Lactic Acid (0.70-2.10) MMOL/L Calcium (8.7-10.7) mg/dL Magnesium (1.6-2.4) mg/dL Total Bilirubin (0.3-1.2) mg/dL AST (8-39) IU/L ALT (9-52) IU/L Alkaline Phosphatase (38-126) IU/L Ammonia (9.0-33.0) UMOL/L Total Creatine Kinase (30-136) IU/L CK-MB (CK-2) (0.00-5.00) NG/ML Troponin I (< 0.040) ng/mL C-Reactive Protein (0.0-0.9) mg/dL Total Protein (6.1-8.0) g/dL Albumin (3.5-4.8) g/dL Globulin (2.50-4.10) g/dL Albumin/Globulin Ratio (1.3-2.0) mg/g Vitamin B12 (239-931) pg/mL Vitamin D 25-Hydroxy (30-100) NG/ML Serum Folate (2.76-20.0) NG/ML Ur Collection Type Clean catch urine Urine Color Yellow (Y) Urine Clarity Slightly cloudy A (CLEAR) Urine pH 5.0 (5.0-8.5) Ur Specific [place] 1.010 (1.005-1.030) Urine Protein 30 A (NEG) mg/dl Urine Glucose (UA) >=1000 (NEG) mg/dL Urine Ketones 40 (NEG) Urine Occult Blood Small H (NEG) Urine Nitrate Negative (NEG) Urine Bilirubin Small (NEG) Urine Urobilinogen 0.2 (0.2) EU/dL Ur Leukocyte Esterase Negative (NEG) Urine RBC 2-4 (NONE) /hpf Urine WBC 1-3 (NONE) Ur Squamous Epith Cells Rare (NONE) Ur Renal Epithelial Cell None (NONE) Urine Crystals None Urine Bacteria Rare (NONE) Urine Casts None (NONE) Urine Mucus None (NONE) Urine Trichomonas None (NONE) Urine Yeast Many H (NONE) Ur Culture Indicated? Culture not set HIV 1&2 Antibody Rapid (N) HIV P24 Antigen (N) 03/08/17 03/08/17 03/09/17 Range/Units 05:48 05:48 05:44 WBC (4.8-10.8) 10^3/uL RBC (4.20-5.40) 10^6/uL Hgb (12.0-16.0) g/dL Hct (37.0-47.0) % MCV (81-99) FL MCH (27-31) PG MCHC (33-37) g/dL RDW Std Deviation (39-50) fL RDW Coeff of Dameon (11.5-14.5) % Plt Count (140-350) 10*3/uL MPV (7.4-12.2) FL Immature Gran % (Auto) (0-5) % Neut % (Auto) (50-80) % Lymph % (Auto) (10-50) % [place] % (Auto) (5-15) % Eos % (Auto) (0-8) % Baso % (Auto) (0-1) % Immature Gran # (Auto) 10*3/UL Neut # (Auto) 10*3/UL Lymph # (Auto) 10*3/uL [place] # (Auto) (0.3-0.8) 10*3/UL Eos # (Auto) 10*3/UL Baso # (Auto) 10*3/UL WBC Morphology Comment (NORM) Plt Morphology Comment (NORM) RBC Morph Comment (NORM) ESR (0-20) MM/HR VBG pH (7.32-7.42) VBG pCO2 (45-55) mmHg VBG HCO3 (22-26) mmol/L VBG Base Excess (-2-2) MMOL/L Sodium 132 L 137 (135-145) meq/L Potassium 4.4 4.4 (3.8-5.2) meq/L Chloride 103 113 H (98-112) meq/L Carbon Dioxide 18 L 15 L (23-33) meq/L Anion Gap 11 9 (5-20) BUN 33 H 26 H (7-22) mg/dL Creatinine 0.8 0.7 (0.50-1.20) mg/dL BUN/Creatinine Ratio 41.25 H 37.14 H (6-20) Glucose 392 H 218 H (78-110) mg/dL Calculated Osmolality 296.0 H 295.0 H (267-292) mOsm/kg Lactic Acid (0.70-2.10) MMOL/L Calcium 8.8 8.6 L (8.7-10.7) mg/dL Magnesium (1.6-2.4) mg/dL Total Bilirubin 0.4 (0.3-1.2) mg/dL AST 26 (8-39) IU/L ALT 35 (9-52) IU/L Alkaline Phosphatase 124 (38-126) IU/L Ammonia 9 (9.0-33.0) UMOL/L Total Creatine Kinase 141 H (30-136) IU/L CK-MB (CK-2) (0.00-5.00) NG/ML Troponin I (< 0.040) ng/mL C-Reactive Protein (0.0-0.9) mg/dL Total Protein 5.7 L (6.1-8.0) g/dL Albumin 2.7 L (3.5-4.8) g/dL Globulin 3.0 (2.50-4.10) g/dL Albumin/Globulin Ratio 0.90 L (1.3-2.0) mg/g Vitamin B12 (239-931) pg/mL Vitamin D 25-Hydroxy (30-100) NG/ML Serum Folate (2.76-20.0) NG/ML Ur Collection Type Urine Color (Y) Urine Clarity (CLEAR) Urine pH (5.0-8.5) Ur Specific [place] (1.005-1.030) Urine Protein (NEG) mg/dl Urine Glucose (UA) (NEG) mg/dL Urine Ketones (NEG) Urine Occult Blood (NEG) Urine Nitrate (NEG) Urine Bilirubin (NEG) Urine Urobilinogen (0.2) EU/dL Ur Leukocyte Esterase (NEG) Urine RBC (NONE) /hpf Urine WBC (NONE) Ur Squamous Epith Cells (NONE) Ur Renal Epithelial Cell (NONE) Urine Crystals Urine Bacteria (NONE) Urine Casts (NONE) Urine Mucus (NONE) Urine Trichomonas (NONE) Urine Yeast (NONE) Ur Culture Indicated? HIV 1&2 Antibody Rapid Negative (N) HIV P24 Antigen Negative (N) - Imaging CT Scan Status: Report Reviewed by Me (Patient with complete vertebral artery occlusion. Cerebellar stroke on left side.) Objective : Exam - General General Appearance: No Acute Distress, Cooperative Additional General Exam Details: Vital Signs (24 hrs) Temp Pulse Pulse Resp BP BP Pulse Ox 03/09/17 15:58 97.4 F 97 22 173/67 94 03/09/17 15:00 89 03/09/17 13:00 97.0 F 88 20 167/57 95 03/09/17 11:00 102 H 03/09/17 07:00 96 03/09/17 06:38 97.8 F 81 18 164/62 94 03/09/17 04:13 97.6 F 77 20 141/49 93 03/09/17 03:00 79 03/09/17 00:34 97.8 F 97 20 154/51 92 03/09/17 00:28 98 03/08/17 20:04 97.6 F 103 H 18 130/54 94 03/08/17 19:00 98 - Eye Eye Exam: No Scleral Icterus - Respiratory Respiratory Exam: Clear to Auscultation - Bilaterally, Breathing Non Labored - Cardiovascular Cardiovascular Exam: RRR, No Murmur, No Clicks, No Gallops, No Rubs, No JVD - GI/Abdominal GI/Abdominal Exam: Normal Bowel Sounds, Non Tender, Non Distended, Soft - Extremities Extremities Exam: No Clubbing Present, No Edema Present, No Cyanosis Present - Neurological Neurological Exam: Alert, Oriented x 3, No Facial Droop, Speech Intact / Clear - Psychiatric Psychiatric Exam: Normal Affect, Normal Mood Additional Psychiatric Exam Details: smiled today Assessment and Plan - Patient Problems (1) Cerebellar stroke Current Visit: Yes Status: Acute Code(s): I63.9 - Cerebral infarction, unspecified (2) Confusion Current Visit: Yes Status: Acute Code(s): R41.0 - Disorientation, unspecified (3) Diabetes mellitus type II, uncontrolled Current Visit: Yes Status: Acute Code(s): E11.65 - Type 2 diabetes mellitus with hyperglycemia Qualifiers: Diabetes mellitus complication status: without complication Diabetes mellitus intermediate insulin use: without intermediate use Qualified Code(s): E11.65 - Type 2 diabetes mellitus with hyperglycemia (4) Hypertension Current Visit: Yes Status: Acute Code(s): I10 - Essential (primary) hypertension Qualifiers: Hypertension type: essential hypertension Qualified Code(s): I10 - Essential (primary) hypertension (5) Chronic low back pain Current Visit: Yes Status: Acute Code(s): M54.5 - Low back pain; G89.29 - Other chronic pain Qualifiers: Back pain laterality: bilateral Sciatica presence: without sciatica Qualified Code(s): M54.5 - Low back pain; G89.29 - Other chronic pain; G89.29 - Other chronic pain (6) Falls Current Visit: Yes Status: Acute Code(s): W19.XXXA - Unspecified fall, initial encounter Qualifiers: Encounter type: initial encounter Qualified Code(s): W19.XXXA - Unspecified fall, initial encounter (7) Cognitive impairment Current Visit: Yes Status: Acute Code(s): R41.89 - Other symptoms and signs involving cognitive functions and awareness (8) Osteoarthritis Current Visit: Yes Status: Acute Code(s): M19.90 - Unspecified osteoarthritis, unspecified site Qualifiers: Osteoarthritis location: multiple joints Osteoarthritis type: primary Qualified Code(s): M15.0 - Primary generalized (osteo)arthritis (9) Medical non-compliance Current Visit: Yes Status: Acute Code(s): Z91.19 - Patient's noncompliance with other medical treatment and regimen (10) Depression Current Visit: Yes Status: Acute Code(s): F32.9 - Major depressive disorder , single episode, unspecified Qualifiers: Depression Type: other depression Qualified Code(s): F32.89 - Other specified depressive episodes (11) Vertebral artery stenosis Current Visit: Yes Status: Acute Code(s): I65.09 - Occlusion and stenosis of unspecified vertebral artery Qualifiers: Laterality: left Qualified Code(s): I65.02 - Occlusion and stenosis of left vertebral artery - Assessment / Plan Additional Assessment/Plan Details: I discussed with neurologythey told me the complete vertebral artery occlusion is not a lesion that can be stented start lisinopril (okay to start resuming blood pressure management) antiplatelet therapy continue cardiac monitoring, but no evidence of atrial fibrillation to this point start statin continue PT and OTswing bed and watch. may need eventual fpc? increase lantus for DMII smoking cessation continue celexa for depression check ECHO on Sunday son aware of disposition plan and also of cerebellar stroke. He agrees with trying swing bed first and to SNF if necessary
[2017-03-09] MEDS: NORMAL SALINE 10 ML SYRINGE FLUSH IVP PRN ×2 (18:50→21:52)
[2017-03-09] MEDS: Simvastatin Tab 40 MG TAB PO SCH (20:58)
[2017-03-10] MEDS: IBUPROFEN 800 MG TABLET PO PRN ×2 (03:40→12:46)
[2017-03-10] MEDS: HEPARIN 5000 UNIT/1 ML SUBCUT SCH ×3 (05:41→21:29)
[2017-03-10 06:48] LABS: BLOOD UREA NITROGEN 18 mg/dL (7-22); BUN/CREATININE RATIO 25.71 (6-20)
[2017-03-10] MEDS: Insulin Lispro Flexpen 300 UNIT/3 ML INSULN.PEN SUBCUT SCH ×4 (06:51→20:53)
[2017-03-10] MEDS: ACETAMINOPHEN 325 MG TABLET PO PRN ×2 (08:04→20:20)
[2017-03-10] MEDS: LISINOPRIL 20 MG TABLET PO SCH (08:04)
[2017-03-10] MEDS: DOCUSATE 100 MG CAPSULE PO PRN (08:04)
[2017-03-10] MEDS: ASPIRIN 325 MG TABLET PO SCH (08:04)
[2017-03-10] MEDS: NICOTINE 21 MG /DAY PATCH TRANSDERM SCH (08:05)
[2017-03-10] MEDS: CITALOPRAM 20 MG TABLET PO SCH (08:05)
[2017-03-10] MEDS: Prochlorperazine Edisylate Inj 10mg/2ml vial IVP PRN (08:05)
--- NOTE | 2017-03-10 11:26 | PT.PROG ---
Progress Note Progress Note: S: pt reports she is tired today. doesn't want to go downstairs today complaints of back pain. O: nsg okay'd prior to PT. pt instructed in ambulation with walker with mod assist x 2 she tends to lean to left and is unable to self correct for 50 feet. pt instructed in sit to stands w min assist x 2 with walker x 6, then 4 reps after rest break. pt instructed in kegels for back pain x 10, glut setx 10 reps , seated marches, seated pillow squeeze, seated resisted hip abd x 10 reps. standing weight shifting, standing heel/toe raises, standing marches all x 10 reps each. pt instructed in seated resisted hamstring curls isometric. pt required mod assist x 2 with walker for transfer back to bed. MHP x20 mins in supine in bed and nsg was left w instructions on MHP. pt left with call light within reach and proper alarms activated. A: pt tolerated therapy fair, fatigues easily and demo L lateral sway with all activities and unable to self correct. pt continues to benefit from skilled therapy. P: cont per POC.
[2017-03-10] MEDS ORDERED: CHOLECALCIFEROL 1000 IU TABLET PO ONE (12:15)
[2017-03-10] MEDS ORDERED: SCOPOLAMINE HYDROBROMIDE 1.5 MG - 1 EACH PATCH TRANSDERM ONE (15:34)
[2017-03-10] MEDS ORDERED: MAGNESIUM 400 MG/5 ML - 30 ML (MILK OF MAGNESIA) PO ONE (15:35)
[2017-03-10] MEDS ORDERED: Insulin Glargine SoloStar Inj 100 UNIT/ML INSULN.PEN SUBCUT SCH (15:35)
[2017-03-10] MEDS ORDERED: MAGNESIUM 400 MG/5 ML - 30 ML (MILK OF MAGNESIA) PO PRN (15:35)
--- NOTE | 2017-03-10 15:48 | PDOC(PROG) ---
Date and Time of Service: 03/10/2017, 1543 Interval History: Still complains of bad nausea. Has not had a bowel movement in a couple of days. No chest pain, shortness of breath, and still leans significantly to the left with ambulation and therapy. Objective : Data - Labs CBC and BMP: 03/08/17 05:48 03/10/17 05:50 Additional Lab Results: Laboratory Results 03/07/17 03/07/17 03/07/17 Range/Units 16:25 16:25 16:25 WBC 12.20 H (4.8-10.8) 10^3/uL RBC 5.55 H (4.20-5.40) 10^6/uL Hgb 16.5 H (12.0-16.0) g/dL Hct 45.9 (37.0-47.0) % MCV 82.7 (81-99) FL MCH 29.7 (27-31) PG MCHC 35.9 (33-37) g/dL RDW Std Deviation 38.6 L (39-50) fL RDW Coeff of [place] 12.8 (11.5-14.5) % Plt Count 348 (140-350) 10*3/uL MPV 10.8 (7.4-12.2) FL Immature Gran % (Auto) 0.3 (0-5) % Neut % (Auto) 72.2 (50-80) % Lymph % (Auto) 20.6 (10-50) % [place] % (Auto) 6.0 (5-15) % Eos % (Auto) 0.5 (0-8) % Baso % (Auto) 0.4 (0-1) % Immature Gran # (Auto) 0.04 10*3/UL Neut # (Auto) 8.81 10*3/UL Lymph # (Auto) 2.51 10*3/uL [place] # (Auto) 0.73 (0.3-0.8) 10*3/UL Eos # (Auto) 0.06 10*3/UL Baso # (Auto) 0.05 10*3/UL WBC Morphology Comment Normal morphology (NORM) Plt Morphology Comment Normal morphology (NORM) RBC Morph Comment Normal morphology (NORM) ESR (0-20) MM/HR VBG pH (7.32-7.42) VBG pCO2 (45-55) mmHg VBG HCO3 (22-26) mmol/L VBG Base Excess (-2-2) MMOL/L Sodium 131 L (135-145) meq/L Potassium 4.9 (3.8-5.2) meq/L Chloride 95 L (98-112) meq/L Carbon Dioxide 19 L (23-33) meq/L Anion Gap 17 (5-20) BUN 37 H (7-22) mg/dL Creatinine 0.9 (0.50-1.20) mg/dL BUN/Creatinine Ratio 41.11 H (6-20) Glucose 455 H* (78-110) mg/dL Calculated Osmolality 300.0 H (267-292) mOsm/kg Lactic Acid 2.1 (0.70-2.10) MMOL/L Calcium 10.6 (8.7-10.7) mg/dL Magnesium 1.9 (1.6-2.4) mg/dL Total Bilirubin 0.8 (0.3-1.2) mg/dL AST 34 (8-39) IU/L ALT 45 (9-52) IU/L Alkaline Phosphatase 137 H (38-126) IU/L Ammonia (9.0-33.0) UMOL/L Total Creatine Kinase 174 H (30-136) IU/L CK-MB (CK-2) 5.80 H (0.00-5.00) NG/ML Troponin I 0.013 (< 0.040) ng/mL C-Reactive Protein 1.0 H (0.0-0.9) mg/dL Total Protein 8.0 (6.1-8.0) g/dL Albumin 4.1 (3.5-4.8) g/dL Globulin 3.9 (2.50-4.10) g/dL Albumin/Globulin Ratio 1.00 L (1.3-2.0) mg/g Vitamin B12 (239-931) pg/mL Vitamin D 25-Hydroxy (30-100) NG/ML Serum Folate (2.76-20.0) NG/ML Ur Collection Type Urine Color (Y) Urine Clarity (CLEAR) Urine pH (5.0-8.5) Ur Specific [place] (1.005-1.030) Urine Protein (NEG) mg/dl Urine Glucose (UA) (NEG) mg/dL Urine Ketones (NEG) Urine Occult Blood (NEG) Urine Nitrate (NEG) Urine Bilirubin (NEG) Urine Urobilinogen (0.2) EU/dL Ur Leukocyte Esterase (NEG) Urine RBC (NONE) /hpf Urine WBC (NONE) Ur Squamous Epith Cells (NONE) Ur Renal Epithelial Cell (NONE) Urine Crystals Urine Bacteria (NONE) Urine Casts (NONE) Urine Mucus (NONE) Urine Trichomonas (NONE) Urine Yeast (NONE) Ur Culture Indicated? HIV 1&2 Antibody Rapid (N) HIV P24 Antigen (N) 03/07/17 03/07/17 03/07/17 Range/Units 16:25 16:25 16:25 WBC (4.8-10.8) 10^3/uL RBC (4.20-5.40) 10^6/uL Hgb (12.0-16.0) g/dL Hct (37.0-47.0) % MCV (81-99) FL MCH (27-31) PG MCHC (33-37) g/dL RDW Std Deviation (39-50) fL RDW Coeff of [place] (11.5-14.5) % Plt Count (140-350) 10*3/uL MPV (7.4-12.2) FL Immature Gran % (Auto) (0-5) % Neut % (Auto) (50-80) % Lymph % (Auto) (10-50) % [place] % (Auto) (5-15) % Eos % (Auto) (0-8) % Baso % (Auto) (0-1) % Immature Gran # (Auto) 10*3/UL Neut # (Auto) 10*3/UL Lymph # (Auto) 10*3/uL [place] # (Auto) (0.3-0.8) 10*3/UL Eos # (Auto) 10*3/UL Baso # (Auto) 10*3/UL WBC Morphology Comment (NORM) Plt Morphology Comment (NORM) RBC Morph Comment (NORM) ESR 13 (0-20) MM/HR VBG pH (7.32-7.42) VBG pCO2 (45-55) mmHg VBG HCO3 (22-26) mmol/L VBG Base Excess (-2-2) MMOL/L Sodium (135-145) meq/L Potassium (3.8-5.2) meq/L Chloride (98-112) meq/L Carbon Dioxide (23-33) meq/L Anion Gap (5-20) BUN (7-22) mg/dL Creatinine (0.50-1.20) mg/dL BUN/Creatinine Ratio (6-20) Glucose (78-110) mg/dL Calculated Osmolality (267-292) mOsm/kg Lactic Acid (0.70-2.10) MMOL/L Calcium (8.7-10.7) mg/dL Magnesium (1.6-2.4) mg/dL Total Bilirubin (0.3-1.2) mg/dL AST (8-39) IU/L ALT (9-52) IU/L Alkaline Phosphatase (38-126) IU/L Ammonia (9.0-33.0) UMOL/L Total Creatine Kinase (30-136) IU/L CK-MB (CK-2) (0.00-5.00) NG/ML Troponin I (< 0.040) ng/mL C-Reactive Protein (0.0-0.9) mg/dL Total Protein (6.1-8.0) g/dL Albumin (3.5-4.8) g/dL Globulin (2.50-4.10) g/dL Albumin/Globulin Ratio (1.3-2.0) mg/g Vitamin B12 927 (239-931) pg/mL Vitamin D 25-Hydroxy 25.5 L (30-100) NG/ML Serum Folate > 20.0 H (2.76-20.0) NG/ML Ur Collection Type Urine Color (Y) Urine Clarity (CLEAR) Urine pH (5.0-8.5) Ur Specific [place] (1.005-1.030) Urine Protein (NEG) mg/dl Urine Glucose (UA) (NEG) mg/dL Urine Ketones (NEG) Urine Occult Blood (NEG) Urine Nitrate (NEG) Urine Bilirubin (NEG) Urine Urobilinogen (0.2) EU/dL Ur Leukocyte Esterase (NEG) Urine RBC (NONE) /hpf Urine WBC (NONE) Ur Squamous Epith Cells (NONE) Ur Renal Epithelial Cell (NONE) Urine Crystals Urine Bacteria (NONE) Urine Casts (NONE) Urine Mucus (NONE) Urine Trichomonas (NONE) Urine Yeast (NONE) Ur Culture Indicated? HIV 1&2 Antibody Rapid (N) HIV P24 Antigen (N) 03/07/17 03/07/17 03/08/17 Range/Units 17:25 18:24 05:48 WBC 7.83 (4.8-10.8) 10^3/uL RBC 4.43 (4.20-5.40) 10^6/uL Hgb 12.7 (12.0-16.0) g/dL Hct 37.0 (37.0-47.0) % MCV 83.5 (81-99) FL MCH 28.7 (27-31) PG MCHC 34.3 (33-37) g/dL RDW Std Deviation 37.8 L (39-50) fL RDW Coeff of [place] 12.6 (11.5-14.5) % Plt Count 284 (140-350) 10*3/uL MPV 10.2 (7.4-12.2) FL Immature Gran % (Auto) 0.1 (0-5) % Neut % (Auto) 65.3 (50-80) % Lymph % (Auto) 24.9 (10-50) % [place] % (Auto) 8.0 (5-15) % Eos % (Auto) 1.4 (0-8) % Baso % (Auto) 0.3 (0-1) % Immature Gran # (Auto) 0.01 10*3/UL Neut # (Auto) 5.11 10*3/UL Lymph # (Auto) 1.95 10*3/uL [place] # (Auto) 0.63 (0.3-0.8) 10*3/UL Eos # (Auto) 0.11 10*3/UL Baso # (Auto) 0.02 10*3/UL WBC Morphology Comment Normal morphology (NORM) Plt Morphology Comment Normal morphology (NORM) RBC Morph Comment Normal morphology (NORM) ESR (0-20) MM/HR VBG pH 7.34 (7.32-7.42) VBG pCO2 33 L (45-55) mmHg VBG HCO3 18 L (22-26) mmol/L VBG Base Excess -8 L (-2-2) MMOL/L Sodium (135-145) meq/L Potassium (3.8-5.2) meq/L Chloride (98-112) meq/L Carbon Dioxide (23-33) meq/L Anion Gap (5-20) BUN (7-22) mg/dL Creatinine (0.50-1.20) mg/dL BUN/Creatinine Ratio (6-20) Glucose (78-110) mg/dL Calculated Osmolality (267-292) mOsm/kg Lactic Acid (0.70-2.10) MMOL/L Calcium (8.7-10.7) mg/dL Magnesium (1.6-2.4) mg/dL Total Bilirubin (0.3-1.2) mg/dL AST (8-39) IU/L ALT (9-52) IU/L Alkaline Phosphatase (38-126) IU/L Ammonia (9.0-33.0) UMOL/L Total Creatine Kinase (30-136) IU/L CK-MB (CK-2) (0.00-5.00) NG/ML Troponin I (< 0.040) ng/mL C-Reactive Protein (0.0-0.9) mg/dL Total Protein (6.1-8.0) g/dL Albumin (3.5-4.8) g/dL Globulin (2.50-4.10) g/dL Albumin/Globulin Ratio (1.3-2.0) mg/g Vitamin B12 (239-931) pg/mL Vitamin D 25-Hydroxy (30-100) NG/ML Serum Folate (2.76-20.0) NG/ML Ur Collection Type Clean catch urine Urine Color Yellow (Y) Urine Clarity Slightly cloudy A (CLEAR) Urine pH 5.0 (5.0-8.5) Ur Specific [place] 1.010 (1.005-1.030) Urine Protein 30 A (NEG) mg/dl Urine Glucose (UA) >=1000 (NEG) mg/dL Urine Ketones 40 (NEG) Urine Occult Blood Small H (NEG) Urine Nitrate Negative (NEG) Urine Bilirubin Small (NEG) Urine Urobilinogen 0.2 (0.2) EU/dL Ur Leukocyte Esterase Negative (NEG) Urine RBC 2-4 (NONE) /hpf Urine WBC 1-3 (NONE) Ur Squamous Epith Cells Rare (NONE) Ur Renal Epithelial Cell None (NONE) Urine Crystals None Urine Bacteria Rare (NONE) Urine Casts None (NONE) Urine Mucus None (NONE) Urine Trichomonas None (NONE) Urine Yeast Many H (NONE) Ur Culture Indicated? Culture not set HIV 1&2 Antibody Rapid (N) HIV P24 Antigen (N) 03/08/17 03/08/17 03/09/17 Range/Units 05:48 05:48 05:44 WBC (4.8-10.8) 10^3/uL RBC (4.20-5.40) 10^6/uL Hgb (12.0-16.0) g/dL Hct (37.0-47.0) % MCV (81-99) FL MCH (27-31) PG MCHC (33-37) g/dL RDW Std Deviation (39-50) fL RDW Coeff of [place] (11.5-14.5) % Plt Count (140-350) 10*3/uL MPV (7.4-12.2) FL Immature Gran % (Auto) (0-5) % Neut % (Auto) (50-80) % Lymph % (Auto) (10-50) % [place] % (Auto) (5-15) % Eos % (Auto) (0-8) % Baso % (Auto) (0-1) % Immature Gran # (Auto) 10*3/UL Neut # (Auto) 10*3/UL Lymph # (Auto) 10*3/uL [place] # (Auto) (0.3-0.8) 10*3/UL Eos # (Auto) 10*3/UL Baso # (Auto) 10*3/UL WBC Morphology Comment (NORM) Plt Morphology Comment (NORM) RBC Morph Comment (NORM) ESR (0-20) MM/HR VBG pH (7.32-7.42) VBG pCO2 (45-55) mmHg VBG HCO3 (22-26) mmol/L VBG Base Excess (-2-2) MMOL/L Sodium 132 L 137 (135-145) meq/L Potassium 4.4 4.4 (3.8-5.2) meq/L Chloride 103 113 H (98-112) meq/L Carbon Dioxide 18 L 15 L (23-33) meq/L Anion Gap 11 9 (5-20) BUN 33 H 26 H (7-22) mg/dL Creatinine 0.8 0.7 (0.50-1.20) mg/dL BUN/Creatinine Ratio 41.25 H 37.14 H (6-20) Glucose 392 H 218 H (78-110) mg/dL Calculated Osmolality 296.0 H 295.0 H (267-292) mOsm/kg Lactic Acid (0.70-2.10) MMOL/L Calcium 8.8 8.6 L (8.7-10.7) mg/dL Magnesium (1.6-2.4) mg/dL Total Bilirubin 0.4 (0.3-1.2) mg/dL AST 26 (8-39) IU/L ALT 35 (9-52) IU/L Alkaline Phosphatase 124 (38-126) IU/L Ammonia 9 (9.0-33.0) UMOL/L Total Creatine Kinase 141 H (30-136) IU/L CK-MB (CK-2) (0.00-5.00) NG/ML Troponin I (< 0.040) ng/mL C-Reactive Protein (0.0-0.9) mg/dL Total Protein 5.7 L (6.1-8.0) g/dL Albumin 2.7 L (3.5-4.8) g/dL Globulin 3.0 (2.50-4.10) g/dL Albumin/Globulin Ratio 0.90 L (1.3-2.0) mg/g Vitamin B12 (239-931) pg/mL Vitamin D 25-Hydroxy (30-100) NG/ML Serum Folate (2.76-20.0) NG/ML Ur Collection Type Urine Color (Y) Urine Clarity (CLEAR) Urine pH (5.0-8.5) Ur Specific [place] (1.005-1.030) Urine Protein (NEG) mg/dl Urine Glucose (UA) (NEG) mg/dL Urine Ketones (NEG) Urine Occult Blood (NEG) Urine Nitrate (NEG) Urine Bilirubin (NEG) Urine Urobilinogen (0.2) EU/dL Ur Leukocyte Esterase (NEG) Urine RBC (NONE) /hpf Urine WBC (NONE) Ur Squamous Epith Cells (NONE) Ur Renal Epithelial Cell (NONE) Urine Crystals Urine Bacteria (NONE) Urine Casts (NONE) Urine Mucus (NONE) Urine Trichomonas (NONE) Urine Yeast (NONE) Ur Culture Indicated? HIV 1&2 Antibody Rapid Negative (N) HIV P24 Antigen Negative (N) 03/10/17 Range/Units 05:50 WBC (4.8-10.8) 10^3/uL RBC (4.20-5.40) 10^6/uL Hgb (12.0-16.0) g/dL Hct (37.0-47.0) % MCV (81-99) FL MCH (27-31) PG MCHC (33-37) g/dL RDW Std Deviation (39-50) fL RDW Coeff of [place] (11.5-14.5) % Plt Count (140-350) 10*3/uL MPV (7.4-12.2) FL Immature Gran % (Auto) (0-5) % Neut % (Auto) (50-80) % Lymph % (Auto) (10-50) % [place] % (Auto) (5-15) % Eos % (Auto) (0-8) % Baso % (Auto) (0-1) % Immature Gran # (Auto) 10*3/UL Neut # (Auto) 10*3/UL Lymph # (Auto) 10*3/uL [place] # (Auto) (0.3-0.8) 10*3/UL Eos # (Auto) 10*3/UL Baso # (Auto) 10*3/UL WBC Morphology Comment (NORM) Plt Morphology Comment (NORM) RBC Morph Comment (NORM) ESR (0-20) MM/HR VBG pH (7.32-7.42) VBG pCO2 (45-55) mmHg VBG HCO3 (22-26) mmol/L VBG Base Excess (-2-2) MMOL/L Sodium 137 (135-145) meq/L Potassium 3.9 (3.8-5.2) meq/L Chloride 112 (98-112) meq/L Carbon Dioxide 18 L (23-33) meq/L Anion Gap 7 (5-20) BUN 18 (7-22) mg/dL Creatinine 0.7 (0.50-1.20) mg/dL BUN/Creatinine Ratio 25.71 H (6-20) Glucose 218 H (78-110) mg/dL Calculated Osmolality 292.0 (267-292) mOsm/kg Lactic Acid (0.70-2.10) MMOL/L Calcium 8.3 L (8.7-10.7) mg/dL Magnesium (1.6-2.4) mg/dL Total Bilirubin (0.3-1.2) mg/dL AST (8-39) IU/L ALT (9-52) IU/L Alkaline Phosphatase (38-126) IU/L Ammonia (9.0-33.0) UMOL/L Total Creatine Kinase (30-136) IU/L CK-MB (CK-2) (0.00-5.00) NG/ML Troponin I (< 0.040) ng/mL C-Reactive Protein (0.0-0.9) mg/dL Total Protein (6.1-8.0) g/dL Albumin (3.5-4.8) g/dL Globulin (2.50-4.10) g/dL Albumin/Globulin Ratio (1.3-2.0) mg/g Vitamin B12 (239-931) pg/mL Vitamin D 25-Hydroxy (30-100) NG/ML Serum Folate (2.76-20.0) NG/ML Ur Collection Type Urine Color (Y) Urine Clarity (CLEAR) Urine pH (5.0-8.5) Ur Specific [place] (1.005-1.030) Urine Protein (NEG) mg/dl Urine Glucose (UA) (NEG) mg/dL Urine Ketones (NEG) Urine Occult Blood (NEG) Urine Nitrate (NEG) Urine Bilirubin (NEG) Urine Urobilinogen (0.2) EU/dL Ur Leukocyte Esterase (NEG) Urine RBC (NONE) /hpf Urine WBC (NONE) Ur Squamous Epith Cells (NONE) Ur Renal Epithelial Cell (NONE) Urine Crystals Urine Bacteria (NONE) Urine Casts (NONE) Urine Mucus (NONE) Urine Trichomonas (NONE) Urine Yeast (NONE) Ur Culture Indicated? HIV 1&2 Antibody Rapid (N) HIV P24 Antigen (N) Objective : Exam - General General Appearance: No Acute Distress, Cooperative Additional General Exam Details: Vital Signs (24 hrs) Temp Pulse Pulse Resp BP BP Pulse Ox 03/10/17 12:42 97.2 F 94 16 150/44 95 03/10/17 11:00 73 03/10/17 07:39 97.6 F 99 16 160/57 95 03/10/17 06:45 95 03/10/17 04:29 97.5 F 96 16 166/62 94 03/10/17 04:20 91 03/10/17 03:00 85 03/10/17 01:00 97.6 F 101 H 16 154/75 93 03/09/17 23:13 106 H 03/09/17 21:00 97.4 F 109 H 16 173/71 93 03/09/17 20:00 91 03/09/17 19:00 105 H 03/09/17 15:58 97.4 F 97 22 173/67 94 - Eye Eye Exam: No Scleral Icterus - ENT ENT Exam: Mucous Membranes Moist - Respiratory Respiratory Exam: Clear to Auscultation - Bilaterally, Breathing Non Labored - Cardiovascular Cardiovascular Exam: RRR, No Murmur, No Clicks, No Gallops, No Rubs, No JVD - GI/Abdominal GI/Abdominal Exam: Normal Bowel Sounds, Non Tender, Non Distended, Soft - Extremities Extremities Exam: No Clubbing Present, No Edema Present, No Cyanosis Present - Neurological Neurological Exam: Alert, Oriented x 3, No Facial Droop, Speech Intact / Clear, Moves All Extremities Equally Assessment and Plan - Patient Problems (1) Cerebellar stroke Current Visit: Yes Status: Acute Code(s): I63.9 - Cerebral infarction, unspecified (2) Confusion Current Visit: Yes Status: Acute Code(s): R41.0 - Disorientation, unspecified (3) Diabetes mellitus type II, uncontrolled Current Visit: Yes Status: Acute Code(s): E11.65 - Type 2 diabetes mellitus with hyperglycemia Qualifiers: Diabetes mellitus complication status: without complication Diabetes mellitus intermediate teacher insulin use: without intermediate teacher use Qualified Code(s): E11.65 - Type 2 diabetes mellitus with hyperglycemia (4) Hypertension Current Visit: Yes Status: Acute Code(s): I10 - Essential (primary) hypertension Qualifiers: Hypertension type: essential hypertension Qualified Code(s): I10 - Essential (primary) hypertension (5) Chronic low back pain Current Visit: Yes Status: Acute Code(s): M54.5 - Low back pain; G89.29 - Other chronic pain Qualifiers: Back pain laterality: bilateral Sciatica presence: without sciatica Qualified Code(s): M54.5 - Low back pain; G89.29 - Other chronic pain; G89.29 - Other chronic pain (6) Falls Current Visit: Yes Status: Acute Code(s): W19.XXXA - Unspecified fall, initial encounter Qualifiers: Encounter type: initial encounter Qualified Code(s): W19.XXXA - Unspecified fall, initial encounter (7) Cognitive impairment Current Visit: Yes Status: Acute Code(s): R41.89 - Other symptoms and signs involving cognitive functions and awareness (8) Osteoarthritis Current Visit: Yes Status: Acute Code(s): M19.90 - Unspecified osteoarthritis, unspecified site Qualifiers: Osteoarthritis location: multiple joints Osteoarthritis type: primary Qualified Code(s): M15.0 - Primary generalized (osteo)arthritis (9) Medical non-compliance Current Visit: Yes Status: Acute Code(s): Z91.19 - Patient's noncompliance with other medical treatment and regimen (10) Depression Current Visit: Yes Status: Acute Code(s): F32.9 - Major depressive disorder , single episode, unspecified Qualifiers: Depression Type: other depression Qualified Code(s): F32.89 - Other specified depressive episodes (11) Vertebral artery stenosis Current Visit: Yes Status: Acute Code(s): I65.09 - Occlusion and stenosis of unspecified vertebral artery Qualifiers: Laterality: left Qualified Code(s): I65.02 - Occlusion and stenosis of left vertebral artery (12) Nausea Current Visit: Yes Status: Acute Code(s): R11.0 - Nausea (13) Vitamin D deficiency Current Visit: Yes Status: Acute Code(s): E55.9 - Vitamin D deficiency, unspecified - Assessment / Plan Additional Assessment/Plan Details: The patient will have persistent nausea think from her 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 The cerebellum controls muscle coordination on the same side of the body so this is all consistent with cerebellar stroke. I think scopolamine patch might help with some of the nausea, so I will trial that and stop Zofran at this point. Continue antihypertensive/antiplatelet/cholesterol therapy/improvement in diabetes care, and I'm going to go ahead and increase the Lantus to 38 units daily at bedtime tonight. May need to consider adding oral agent as well, but will check every before meals and daily at bedtime blood sugars to help guide therapy. Diabetes control is improving. Vitamin D was found to be low so I will go ahead and replace that. Plan is for swing bed and she will qualify on Sunday or Sunday. I will continue to monitor for potential atrial fibrillation until discharge from the acute hospital stay but I think we can stop monitoring at that time if no atrial fibrillation is noted. Thus far has not been noted. Continue PT and OT. Overall, if the patient does well enough on swing bed and some balance is recovered, my hope is we can get the patient home, but likely she is looking at long-term placement.
[2017-03-10] MEDS: Simvastatin Tab 40 MG TAB PO SCH (21:29)
[2017-03-11] MEDS: HEPARIN 5000 UNIT/1 ML SUBCUT SCH (05:42)
[2017-03-11 07:11] VITALS: BP 158/64; RESP 17; TEMP 97.2; O2SAT 93
[2017-03-11] MEDS: Insulin Lispro Flexpen 300 UNIT/3 ML INSULN.PEN SUBCUT SCH (07:27)
[2017-03-11] MEDS ORDERED: CHOLECALCIFEROL 1000 IU TABLET PO SCH (09:00)
[2017-03-11] MEDS: CITALOPRAM 20 MG TABLET PO SCH (09:05)
[2017-03-11] MEDS: ASPIRIN 325 MG TABLET PO SCH (09:05)
[2017-03-11] MEDS: LISINOPRIL 20 MG TABLET PO SCH (09:06)
[2017-03-11] MEDS: NICOTINE 21 MG /DAY PATCH TRANSDERM SCH (09:06)
[2017-03-11] MEDS: ACETAMINOPHEN 325 MG TABLET PO PRN (09:07)
--- NOTE | 2017-03-11 09:19 | DCSUMMARY ---
Hospitalization Summary Admit Date: 03/07/17 Discharge Date: 03/11/17 Hospital Course: Discharge diagnoses 1. Subacute ischemic infarct of the left cerebellar hemisphere 2. Old lacunar infarct in the right caudate nucleus and the right basal ganglia 3. Moderate severe cerebral atrophy 4. Hypertension 5. Diabetes 6. Chronic low back pain 7. History of Depression with anxiety features 8. Large abdominal wall hernia 9. Osteoarthritis status post left knee replacement 10. History of Cleft palate repair 11. Occlusion of the left vertebral artery 12. severe disc space narrowing at L3-4 through L5-S1 with marked sclerosis of the endplates at L3-4 and L4-5. 13. Severe arthritic changes are present in all of the apophyseal joints bilaterally but most pronounced between L3-4 and L5-S1. 14. Old compression fracture of T12. Hospital course This is a 71 years old female with medical history significant for history of diabetes, hypertension, history of depression who is being living in the [facility] apartment for about 6 months was brought to the hospital for evaluation because of falls. Apparently the patient stopped taking her medication for unknown reason few weeks before admissions. She was brought to the hospital for evaluation blood sugar was elevated, she was giving some fluid a CT of the head suggested a subacute infarct of the cerebellum she had also an MRI of the brain which showed the same finding. CTA of the head showed occlusion of the left vertebral artery. She was put on antiplatelet, statin restarted her blood pressure medication and she started physical therapy. She remained weak and she was assessed for swing bed status and she was accepted. I saw her later on during her hospital inpatient stay. She is still weak there is incoordination noted in her examination. apart from some low back pain doesn't have other symptoms. We thought that she can be switched to swing bed status and continue physical therapy. Lumbar x-ray did show severe arthritic changes in the lumbar spine. Also showed old compression fracture of T12. Laboratory Results 03/07/17 03/07/17 03/07/17 Range/Units 16:25 16:25 16:25 WBC 12.20 H (4.8-10.8) 10^3/uL RBC 5.55 H (4.20-5.40) 10^6/uL Hgb 16.5 H (12.0-16.0) g/dL Hct 45.9 (37.0-47.0) % MCV 82.7 (81-99) FL MCH 29.7 (27-31) PG MCHC 35.9 (33-37) g/dL RDW Std Deviation 38.6 L (39-50) fL RDW Coeff of Dameon 12.8 (11.5-14.5) % Plt Count 348 (140-350) 10*3/uL MPV 10.8 (7.4-12.2) FL Immature Gran % (Auto) 0.3 (0-5) % Neut % (Auto) 72.2 (50-80) % Lymph % (Auto) 20.6 (10-50) % [place] % (Auto) 6.0 (5-15) % Eos % (Auto) 0.5 (0-8) % Baso % (Auto) 0.4 (0-1) % Immature Gran # (Auto) 0.04 10*3/UL Neut # (Auto) 8.81 10*3/UL Lymph # (Auto) 2.51 10*3/uL [place] # (Auto) 0.73 (0.3-0.8) 10*3/UL Eos # (Auto) 0.06 10*3/UL Baso # (Auto) 0.05 10*3/UL WBC Morphology Comment Normal morphology (NORM) Plt Morphology Comment Normal morphology (NORM) RBC Morph Comment Normal morphology (NORM) ESR (0-20) MM/HR VBG pH (7.32-7.42) VBG pCO2 (45-55) mmHg VBG HCO3 (22-26) mmol/L VBG Base Excess (-2-2) MMOL/L Sodium 131 L (135-145) meq/L Potassium 4.9 (3.8-5.2) meq/L Chloride 95 L (98-112) meq/L Carbon Dioxide 19 L (23-33) meq/L Anion Gap 17 (5-20) BUN 37 H (7-22) mg/dL Creatinine 0.9 (0.50-1.20) mg/dL BUN/Creatinine Ratio 41.11 H (6-20) Glucose 455 H* (78-110) mg/dL Calculated Osmolality 300.0 H (267-292) mOsm/kg Lactic Acid 2.1 (0.70-2.10) MMOL/L Calcium 10.6 (8.7-10.7) mg/dL Magnesium 1.9 (1.6-2.4) mg/dL Total Bilirubin 0.8 (0.3-1.2) mg/dL AST 34 (8-39) IU/L ALT 45 (9-52) IU/L Alkaline Phosphatase 137 H (38-126) IU/L Ammonia (9.0-33.0) UMOL/L Total Creatine Kinase 174 H (30-136) IU/L CK-MB (CK-2) 5.80 H (0.00-5.00) NG/ML Troponin I 0.013 (< 0.040) ng/mL C-Reactive Protein 1.0 H (0.0-0.9) mg/dL Total Protein 8.0 (6.1-8.0) g/dL Albumin 4.1 (3.5-4.8) g/dL Globulin 3.9 (2.50-4.10) g/dL Albumin/Globulin Ratio 1.00 L (1.3-2.0) mg/g Vitamin B12 (239-931) pg/mL Vitamin D 25-Hydroxy (30-100) NG/ML Serum Folate (2.76-20.0) NG/ML Ur Collection Type Urine Color (Y) Urine Clarity (CLEAR) Urine pH (5.0-8.5) Ur Specific [place] (1.005-1.030) Urine Protein (NEG) mg/dl Urine Glucose (UA) (NEG) mg/dL Urine Ketones (NEG) Urine Occult Blood (NEG) Urine Nitrate (NEG) Urine Bilirubin (NEG) Urine Urobilinogen (0.2) EU/dL Ur Leukocyte Esterase (NEG) Urine RBC (NONE) /hpf Urine WBC (NONE) Ur Squamous Epith Cells (NONE) Ur Renal Epithelial Cell (NONE) Urine Crystals Urine Bacteria (NONE) Urine Casts (NONE) Urine Mucus (NONE) Urine Trichomonas (NONE) Urine Yeast (NONE) Ur Culture Indicated? HIV 1&2 Antibody Rapid (N) HIV P24 Antigen (N) 03/07/17 03/07/17 03/07/17 Range/Units 16:25 16:25 16:25 WBC (4.8-10.8) 10^3/uL RBC (4.20-5.40) 10^6/uL Hgb (12.0-16.0) g/dL Hct (37.0-47.0) % MCV (81-99) FL MCH (27-31) PG MCHC (33-37) g/dL RDW Std Deviation (39-50) fL RDW Coeff of Dameon (11.5-14.5) % Plt Count (140-350) 10*3/uL MPV (7.4-12.2) FL Immature Gran % (Auto) (0-5) % Neut % (Auto) (50-80) % Lymph % (Auto) (10-50) % [place] % (Auto) (5-15) % Eos % (Auto) (0-8) % Baso % (Auto) (0-1) % Immature Gran # (Auto) 10*3/UL Neut # (Auto) 10*3/UL Lymph # (Auto) 10*3/uL [place] # (Auto) (0.3-0.8) 10*3/UL Eos # (Auto) 10*3/UL Baso # (Auto) 10*3/UL WBC Morphology Comment (NORM) Plt Morphology Comment (NORM) RBC Morph Comment (NORM) ESR 13 (0-20) MM/HR VBG pH (7.32-7.42) VBG pCO2 (45-55) mmHg VBG HCO3 (22-26) mmol/L VBG Base Excess (-2-2) MMOL/L Sodium (135-145) meq/L Potassium (3.8-5.2) meq/L Chloride (98-112) meq/L Carbon Dioxide (23-33) meq/L Anion Gap (5-20) BUN (7-22) mg/dL Creatinine (0.50-1.20) mg/dL BUN/Creatinine Ratio (6-20) Glucose (78-110) mg/dL Calculated Osmolality (267-292) mOsm/kg Lactic Acid (0.70-2.10) MMOL/L Calcium (8.7-10.7) mg/dL Magnesium (1.6-2.4) mg/dL Total Bilirubin (0.3-1.2) mg/dL AST (8-39) IU/L ALT (9-52) IU/L Alkaline Phosphatase (38-126) IU/L Ammonia (9.0-33.0) UMOL/L Total Creatine Kinase (30-136) IU/L CK-MB (CK-2) (0.00-5.00) NG/ML Troponin I (< 0.040) ng/mL C-Reactive Protein (0.0-0.9) mg/dL Total Protein (6.1-8.0) g/dL Albumin (3.5-4.8) g/dL Globulin (2.50-4.10) g/dL Albumin/Globulin Ratio (1.3-2.0) mg/g Vitamin B12 927 (239-931) pg/mL Vitamin D 25-Hydroxy 25.5 L (30-100) NG/ML Serum Folate > 20.0 H (2.76-20.0) NG/ML Ur Collection Type Urine Color (Y) Urine Clarity (CLEAR) Urine pH (5.0-8.5) Ur Specific [place] (1.005-1.030) Urine Protein (NEG) mg/dl Urine Glucose (UA) (NEG) mg/dL Urine Ketones (NEG) Urine Occult Blood (NEG) Urine Nitrate (NEG) Urine Bilirubin (NEG) Urine Urobilinogen (0.2) EU/dL Ur Leukocyte Esterase (NEG) Urine RBC (NONE) /hpf Urine WBC (NONE) Ur Squamous Epith Cells (NONE) Ur Renal Epithelial Cell (NONE) Urine Crystals Urine Bacteria (NONE) Urine Casts (NONE) Urine Mucus (NONE) Urine Trichomonas (NONE) Urine Yeast (NONE) Ur Culture Indicated? HIV 1&2 Antibody Rapid (N) HIV P24 Antigen (N) 03/07/17 03/07/17 03/08/17 Range/Units 17:25 18:24 05:48 WBC 7.83 (4.8-10.8) 10^3/uL RBC 4.43 (4.20-5.40) 10^6/uL Hgb 12.7 (12.0-16.0) g/dL Hct 37.0 (37.0-47.0) % MCV 83.5 (81-99) FL MCH 28.7 (27-31) PG MCHC 34.3 (33-37) g/dL RDW Std Deviation 37.8 L (39-50) fL RDW Coeff of Dameon 12.6 (11.5-14.5) % Plt Count 284 (140-350) 10*3/uL MPV 10.2 (7.4-12.2) FL Immature Gran % (Auto) 0.1 (0-5) % Neut % (Auto) 65.3 (50-80) % Lymph % (Auto) 24.9 (10-50) % [place] % (Auto) 8.0 (5-15) % Eos % (Auto) 1.4 (0-8) % Baso % (Auto) 0.3 (0-1) % Immature Gran # (Auto) 0.01 10*3/UL Neut # (Auto) 5.11 10*3/UL Lymph # (Auto) 1.95 10*3/uL [place] # (Auto) 0.63 (0.3-0.8) 10*3/UL Eos # (Auto) 0.11 10*3/UL Baso # (Auto) 0.02 10*3/UL WBC Morphology Comment Normal morphology (NORM) Plt Morphology Comment Normal morphology (NORM) RBC Morph Comment Normal morphology (NORM) ESR (0-20) MM/HR VBG pH 7.34 (7.32-7.42) VBG pCO2 33 L (45-55) mmHg VBG HCO3 18 L (22-26) mmol/L VBG Base Excess -8 L (-2-2) MMOL/L Sodium (135-145) meq/L Potassium (3.8-5.2) meq/L Chloride (98-112) meq/L Carbon Dioxide (23-33) meq/L Anion Gap (5-20) BUN (7-22) mg/dL Creatinine (0.50-1.20) mg/dL BUN/Creatinine Ratio (6-20) Glucose (78-110) mg/dL Calculated Osmolality (267-292) mOsm/kg Lactic Acid (0.70-2.10) MMOL/L Calcium (8.7-10.7) mg/dL Magnesium (1.6-2.4) mg/dL Total Bilirubin (0.3-1.2) mg/dL AST (8-39) IU/L ALT (9-52) IU/L Alkaline Phosphatase (38-126) IU/L Ammonia (9.0-33.0) UMOL/L Total Creatine Kinase (30-136) IU/L CK-MB (CK-2) (0.00-5.00) NG/ML Troponin I (< 0.040) ng/mL C-Reactive Protein (0.0-0.9) mg/dL Total Protein (6.1-8.0) g/dL Albumin (3.5-4.8) g/dL Globulin (2.50-4.10) g/dL Albumin/Globulin Ratio (1.3-2.0) mg/g Vitamin B12 (239-931) pg/mL Vitamin D 25-Hydroxy (30-100) NG/ML Serum Folate (2.76-20.0) NG/ML Ur Collection Type Clean catch urine Urine Color Yellow (Y) Urine Clarity Slightly cloudy A (CLEAR) Urine pH 5.0 (5.0-8.5) Ur Specific [place] 1.010 (1.005-1.030) Urine Protein 30 A (NEG) mg/dl Urine Glucose (UA) >=1000 (NEG) mg/dL Urine Ketones 40 (NEG) Urine Occult Blood Small H (NEG) Urine Nitrate Negative (NEG) Urine Bilirubin Small (NEG) Urine Urobilinogen 0.2 (0.2) EU/dL Ur Leukocyte Esterase Negative (NEG) Urine RBC 2-4 (NONE) /hpf Urine WBC 1-3 (NONE) Ur Squamous Epith Cells Rare (NONE) Ur Renal Epithelial Cell None (NONE) Urine Crystals None Urine Bacteria Rare (NONE) Urine Casts None (NONE) Urine Mucus None (NONE) Urine Trichomonas None (NONE) Urine Yeast Many H (NONE) Ur Culture Indicated? Culture not set HIV 1&2 Antibody Rapid (N) HIV P24 Antigen (N) 03/08/17 03/08/17 03/09/17 Range/Units 05:48 05:48 05:44 WBC (4.8-10.8) 10^3/uL RBC (4.20-5.40) 10^6/uL Hgb (12.0-16.0) g/dL Hct (37.0-47.0) % MCV (81-99) FL MCH (27-31) PG MCHC (33-37) g/dL RDW Std Deviation (39-50) fL RDW Coeff of Dameon (11.5-14.5) % Plt Count (140-350) 10*3/uL MPV (7.4-12.2) FL Immature Gran % (Auto) (0-5) % Neut % (Auto) (50-80) % Lymph % (Auto) (10-50) % [place] % (Auto) (5-15) % Eos % (Auto) (0-8) % Baso % (Auto) (0-1) % Immature Gran # (Auto) 10*3/UL Neut # (Auto) 10*3/UL Lymph # (Auto) 10*3/uL [place] # (Auto) (0.3-0.8) 10*3/UL Eos # (Auto) 10*3/UL Baso # (Auto) 10*3/UL WBC Morphology Comment (NORM) Plt Morphology Comment (NORM) RBC Morph Comment (NORM) ESR (0-20) MM/HR VBG pH (7.32-7.42) VBG pCO2 (45-55) mmHg VBG HCO3 (22-26) mmol/L VBG Base Excess (-2-2) MMOL/L Sodium 132 L 137 (135-145) meq/L Potassium 4.4 4.4 (3.8-5.2) meq/L Chloride 103 113 H (98-112) meq/L Carbon Dioxide 18 L 15 L (23-33) meq/L Anion Gap 11 9 (5-20) BUN 33 H 26 H (7-22) mg/dL Creatinine 0.8 0.7 (0.50-1.20) mg/dL BUN/Creatinine Ratio 41.25 H 37.14 H (6-20) Glucose 392 H 218 H (78-110) mg/dL Calculated Osmolality 296.0 H 295.0 H (267-292) mOsm/kg Lactic Acid (0.70-2.10) MMOL/L Calcium 8.8 8.6 L (8.7-10.7) mg/dL Magnesium (1.6-2.4) mg/dL Total Bilirubin 0.4 (0.3-1.2) mg/dL AST 26 (8-39) IU/L ALT 35 (9-52) IU/L Alkaline Phosphatase 124 (38-126) IU/L Ammonia 9 (9.0-33.0) UMOL/L Total Creatine Kinase 141 H (30-136) IU/L CK-MB (CK-2) (0.00-5.00) NG/ML Troponin I (< 0.040) ng/mL C-Reactive Protein (0.0-0.9) mg/dL Total Protein 5.7 L (6.1-8.0) g/dL Albumin 2.7 L (3.5-4.8) g/dL Globulin 3.0 (2.50-4.10) g/dL Albumin/Globulin Ratio 0.90 L (1.3-2.0) mg/g Vitamin B12 (239-931) pg/mL Vitamin D 25-Hydroxy (30-100) NG/ML Serum Folate (2.76-20.0) NG/ML Ur Collection Type Urine Color (Y) Urine Clarity (CLEAR) Urine pH (5.0-8.5) Ur Specific [place] (1.005-1.030) Urine Protein (NEG) mg/dl Urine Glucose (UA) (NEG) mg/dL Urine Ketones (NEG) Urine Occult Blood (NEG) Urine Nitrate (NEG) Urine Bilirubin (NEG) Urine Urobilinogen (0.2) EU/dL Ur Leukocyte Esterase (NEG) Urine RBC (NONE) /hpf Urine WBC (NONE) Ur Squamous Epith Cells (NONE) Ur Renal Epithelial Cell (NONE) Urine Crystals Urine Bacteria (NONE) Urine Casts (NONE) Urine Mucus (NONE) Urine Trichomonas (NONE) Urine Yeast (NONE) Ur Culture Indicated? HIV 1&2 Antibody Rapid Negative (N) HIV P24 Antigen Negative (N) 03/10/17 Range/Units 05:50 WBC (4.8-10.8) 10^3/uL RBC (4.20-5.40) 10^6/uL Hgb (12.0-16.0) g/dL Hct (37.0-47.0) % MCV (81-99) FL MCH (27-31) PG MCHC (33-37) g/dL RDW Std Deviation (39-50) fL RDW Coeff of Dameon (11.5-14.5) % Plt Count (140-350) 10*3/uL MPV (7.4-12.2) FL Immature Gran % (Auto) (0-5) % Neut % (Auto) (50-80) % Lymph % (Auto) (10-50) % [place] % (Auto) (5-15) % Eos % (Auto) (0-8) % Baso % (Auto) (0-1) % Immature Gran # (Auto) 10*3/UL Neut # (Auto) 10*3/UL Lymph # (Auto) 10*3/uL [place] # (Auto) (0.3-0.8) 10*3/UL Eos # (Auto) 10*3/UL Baso # (Auto) 10*3/UL WBC Morphology Comment (NORM) Plt Morphology Comment (NORM) RBC Morph Comment (NORM) ESR (0-20) MM/HR VBG pH (7.32-7.42) VBG pCO2 (45-55) mmHg VBG HCO3 (22-26) mmol/L VBG Base Excess (-2-2) MMOL/L Sodium 137 (135-145) meq/L Potassium 3.9 (3.8-5.2) meq/L Chloride 112 (98-112) meq/L Carbon Dioxide 18 L (23-33) meq/L Anion Gap 7 (5-20) BUN 18 (7-22) mg/dL Creatinine 0.7 (0.50-1.20) mg/dL BUN/Creatinine Ratio 25.71 H (6-20) Glucose 218 H (78-110) mg/dL Calculated Osmolality 292.0 (267-292) mOsm/kg Lactic Acid (0.70-2.10) MMOL/L Calcium 8.3 L (8.7-10.7) mg/dL Magnesium (1.6-2.4) mg/dL Total Bilirubin (0.3-1.2) mg/dL AST (8-39) IU/L ALT (9-52) IU/L Alkaline Phosphatase (38-126) IU/L Ammonia (9.0-33.0) UMOL/L Total Creatine Kinase (30-136) IU/L CK-MB (CK-2) (0.00-5.00) NG/ML Troponin I (< 0.040) ng/mL C-Reactive Protein (0.0-0.9) mg/dL Total Protein (6.1-8.0) g/dL Albumin (3.5-4.8) g/dL Globulin (2.50-4.10) g/dL Albumin/Globulin Ratio (1.3-2.0) mg/g Vitamin B12 (239-931) pg/mL Vitamin D 25-Hydroxy (30-100) NG/ML Serum Folate (2.76-20.0) NG/ML Ur Collection Type Urine Color (Y) Urine Clarity (CLEAR) Urine pH (5.0-8.5) Ur Specific [place] (1.005-1.030) Urine Protein (NEG) mg/dl Urine Glucose (UA) (NEG) mg/dL Urine Ketones (NEG) Urine Occult Blood (NEG) Urine Nitrate (NEG) Urine Bilirubin (NEG) Urine Urobilinogen (0.2) EU/dL Ur Leukocyte Esterase (NEG) Urine RBC (NONE) /hpf Urine WBC (NONE) Ur Squamous Epith Cells (NONE) Ur Renal Epithelial Cell (NONE) Urine Crystals Urine Bacteria (NONE) Urine Casts (NONE) Urine Mucus (NONE) Urine Trichomonas (NONE) Urine Yeast (NONE) Ur Culture Indicated? HIV 1&2 Antibody Rapid (N) HIV P24 Antigen (N) Follow-up patient status will be switched to swing bed status continue physical therapy. Exam - Vitals Vital Signs: Vital Signs Temperature 97.2 F Temperature Source Temporal Artery Scan Pulse Rate [Pulse Oximeter] 92 Pulse Rate 87 Respiratory Rate 17 Blood Pressure [Right Arm] 190/71 Blood Pressure [Left Arm] 158/64 Blood Pressure 130/56 Pulse Ox 93 Oxygen Delivery Method Room Air Height 5 ft 1 in Weight 172 lb 12.8 oz - General General Appearance: No Acute Distress, Cooperative - Head Head Exam: Normal Inspection, Atraumatic - Eye Eye Exam: POSITIVE: Normal Appearance - ENT ENT Exam: POSITIVE: Normal Exam - Neck Neck Exam: Normal Inspection - Respiratory Respiratory Exam: POSITIVE: Clear to Auscultation - Bilaterally - Cardiovascular Cardiovascular Exam: POSITIVE: RRR - GI/Abdominal GI/Abdominal Exam: POSITIVE: Normal Bowel Sounds, Non Tender, Non Distended, Soft - Rectal Rectal Exam: POSITIVE: Deferred - External Exam: POSITIVE: Deferred - Extremities Extremities Exam: POSITIVE: Normal Inspection - Neurological Neurological Exam: POSITIVE: Alert, Oriented x 3, CN II-XII Intact, No Facial Droop Additional Neurological Exam Details: The strength seemed to be slightly decreased on the left hand melter assistant. And coordination noted on left upper extremity and left lower oximetry examination compared to the right. I did not test her gait today. - Psychiatric Psychiatric Exam: POSITIVE: Normal Affect - Integumentary Integumentary Exam: POSITIVE: Normal Color
[2017-03-11] MEDS: Prochlorperazine Edisylate Inj 10mg/2ml vial IVP PRN (09:55)
[2017-03-11 12:23] LABS: HEPATITIS A IGM Negative (Negative)
--- NOTE | 2017-03-12 09:50 | OT AM DAY ---
Diagnosis : Weakness AM - Occupational Therapy S: The patient reports that she is very tired this morning. We attempted therapy earlier, but the patient was sleeping and said she didn't want to do therapy. We attempted closer to lunchtime. O: The patient was able to come from supine to sit with min assist. She sat edge of bed with min assist for balance. The patient was able to come from sit to stand with mod assist and required max assist to move over to the chair. She tends to lean to the left and has decreased balance and safety awareness. In chair we worked on active range of motion of her upper extremities including shoulder flexion, elbow flexion/extension, wrist flexion/extension, and opposition exercises with her thumb to each finger. There was a very noticeable difference in her coordination and ability to move left upper extremity for the shoulder, elbow, and wrist. Her arm is very "floppy"; however , she has full active range of motion. When cued to slow down and be more conscious of her arm, she was able to do so with 50% increase in function. When her awareness levels decrease, she is very uncoordinated with the left upper extremity. A: The patient had a noticeable left upper extremity difference with her coordination and functional transfers. She requires mod to max assist for her balance. Her safety awareness is poor to the left. P: Continue seeing patient BID during the week and one time per day over the weekend for upper extremity strengthening, ADLs, and overall functional mobility. MTDD
== END 2017-03-11 10:49 | disposition swing bed (61) | DRG 638 ==
LOC: ER 16:40 → MED/SURG 19:17
PROVIDERS: ADMIT Family Medicine; ATTEND Family Medicine